=== PATIENT | male | born 1945 | race Caucasian/White ===

== ENCOUNTER 2018-02-11 06:56 | Day surgery (SDC) | payer MEDICARE, OTHER ==
[2018-02-06 12:28] LABS: BASOPHILS % (AUTO) 0.6 % (0-1); CLARITY,URINE CLEAR (Clear); COLOR,URINE YELLOW (Yellow); EOSINOPHILS # (AUTO) 0.2 X10'3 (0-0.9); EOSINOPHILS % (AUTO) 2.9 % (0-6); GLUCOSE, URINE NEGATIVE (Neg); HEMOGLOBIN 10.6 g/dl (14.0-17.9); KETONES,URINE NEGATIVE (Neg); LEUKOCYTE ESTERASE ,URINE NEGATIVE (Neg); LYMPHOCYTES # (AUTO) 1.2 X10'3 (1.1-4.8); LYMPHOCYTES % (AUTO) 17.6 % (21-51); MEAN CORPUSCULAR HEMOGLOBIN 27.9 PG (27.0-31.0); MEAN CORPUSCULAR HGB CONC 33.2 % (33.0-36.5); MEAN CORPUSCULAR VOLUME 83.8 FL (78-98); MEAN PLATELET VOLUME 7.6 FL (7.4-10.4); MONOCYTES # (AUTO) 0.9 X10'3 (0-0.9); NEUTROPHILS # (AUTO) 4.6 X10'3 (1.8-7.7); NEUTROPHILS % (AUTO) 65.9 % (42-75); NITRITES, URINE NEGATIVE (Neg); OCCULT BLOOD,URINE LARGE (Neg); PLATELET COUNT 353 X10'3 (140-440); PROTEIN,URINE 100 mg/dl (Neg); RED BLOOD COUNT 3.81 X10'6 (4.70-6.10); RED CELL DISTRIBUTION WIDTH 16.2 % (11.5-14.5); UROBILINOGEN,URINE 0.2 E.U/dL (0.2-1.0); WHITE BLOOD COUNT 6.9 X10'3 (4.5-11.0)
[2018-02-06 12:31] LABS: UA COLLECTION TYPE CLN CATCH MIDSTREAM
[2018-02-06 12:37] LABS: BACTERIA,URINE NONE SEEN /HPF (Neg); MUCUS STRANDS NONE SEEN /LPF (Neg); RBC,URINE 20-50 /HPF (0-2); SQUAMOUS EPITHELIAL CELL,UR NONE SEEN /LPF (FEW); WBC,URINE 0-4 /HPF (0-4); YEAST FEW /HPF (NEGATIVE)
[2018-02-06 12:38] LABS: PARTIAL THROMBOPLASTIN TIME 28 SECONDS (22-32); PROTHROMBIN TIME 10.4 SECONDS (9.0-12.0)
[2018-02-06 12:43] LABS: ALANINE AMINOTRANSFERASE 19 U/L (12-78); ALBUMIN 2.9 G/DL (3.4-5.0); ALBUMIN/GLOBULIN RATIO 0.5 (1.1-1.5); ALKALINE PHOSPHATASE 97 IU/L (46-116); ASPARTATE AMINO TRANSFERASE 13 U/L (10-37); BILIRUBIN,TOTAL 0.4 MG/DL (0.1-1.0); BLOOD UREA NITROGEN 45 MG/DL (7-18); CALCIUM 9.8 MG/DL (8.5-10.1); GLUCOSE 118 MG/DL (70-104); TOTAL PROTEIN 9.1 G/DL (6.4-8.2)
[2018-02-06 13:39] LABS: ANION GAP 9 (8-16); BUN/CREATININE RATIO 20.4 (5.4-32.0); CHLORIDE 102 MMOL/L (99-107); CREATININE 2.21 MG/DL (0.60-1.10); POTASSIUM 4.3 MMOL/L (3.5-5.1); SODIUM 138 MMOL/L (135-145); eGFR 29 ML/MIN
[2018-02-06 16:39] LABS: PLATELET FUNCTION (ADP) 148 SECONDS (63-104)
[~2018-02-11] VITALS: Ht 180.3 cm; Wt 123.4 kg
[2018-02-11] VITALS (23 sets, daily range): BP systolic 113–134; BP diastolic 55–77
[~2018-02-11 06:56] MED LIST: ALLO100T PO; ASPI-10 PO; CLOP75TA35 PO; CYAN-19 PO; FOLI1TAB16 PO; FURO40TA4 PO; METO-395 PO; NAPR220T67 PO; POTA8TAB3 PO; PRAV40TA3 PO; VITA100D6 PO
[2018-02-11] MEDS ORDERED: LIDOcaine 1% 30ml preserv. free vial SQ STA (08:29)
[2018-02-11] MEDS ORDERED: MIDAZolam 5mg/ml 2ml vial IV ONE ×2 (08:30→08:40)
[2018-02-11] MEDS ORDERED: LIDOcaine 1% 30ml preserv. free vial SQ ONE (08:40)
[2018-02-11] MEDS ORDERED: LIDOcaine 1% (10mg/ml) 2ml vial SQ ONE (09:05)
[2018-02-11] MEDS ORDERED: LIDOcaine 1%/PF (10mg/ml) 5ml vial IJ ONE (09:10)
[2018-02-11] MEDS ORDERED: NORMAL SALINE IV ONE (09:30)
[2018-02-11] MEDS ORDERED: DESMOPRESSIN IV ONE (09:30)
[2018-02-11 15:52] LABS: HEMATOCRIT 30.6 % (42.0-52.0); HEMOGLOBIN 10.1 g/dl (14.0-17.9); MEAN CORPUSCULAR HEMOGLOBIN 27.5 PG (27.0-31.0); MEAN CORPUSCULAR VOLUME 83.5 FL (78-98); MEAN PLATELET VOLUME 7.3 FL (7.4-10.4); PLATELET COUNT 296 X10'3 (140-440); RED BLOOD COUNT 3.67 X10'6 (4.70-6.10); RED CELL DISTRIBUTION WIDTH 15.9 % (11.5-14.5); WHITE BLOOD COUNT 9.9 X10'3 (4.5-11.0)
[2018-02-11] MEDS ORDERED: acetaminophen w/codeine (30MG) #3 tablet PO PRN (16:45)
[2018-02-11 17:16] LABS: HEMATOCRIT 29.8 % (42.0-52.0); HEMOGLOBIN 9.9 g/dl (14.0-17.9); MEAN CORPUSCULAR HEMOGLOBIN 27.5 PG (27.0-31.0); MEAN CORPUSCULAR HGB CONC 33.2 % (33.0-36.5); MEAN CORPUSCULAR VOLUME 82.7 FL (78-98); PLATELET COUNT 289 X10'3 (140-440); WHITE BLOOD COUNT 9.6 X10'3 (4.5-11.0)
== END 2018-02-11 18:00 | disposition home or self-care (01) ==
LOC: SSTAY O 06:56
PROVIDERS: ATTEND Internal Medicine Critical Care Medicine
DX: N04.9 Nephrotic syndrome with unspecified morphologic changes (principal); I13.0 Hypertensive heart and chronic kidney disease with heart failure and stage 1 through stage 4 chronic kidney disease, or unspecified chronic kidney disease; N18.3 Chronic kidney disease, stage 3 (moderate); I50.21 Acute systolic (congestive) heart failure; I25.10 Atherosclerotic heart disease of native coronary artery without angina pectoris; E78.5 Hyperlipidemia, unspecified; N40.0 Benign prostatic hyperplasia without lower urinary tract symptoms; M19.90 Unspecified osteoarthritis, unspecified site; E66.9 Obesity, unspecified; Z53.8 Procedure and treatment not carried out for other reasons; Z95.1 Presence of aortocoronary bypass graft; Z95.5 Presence of coronary angioplasty implant and graft; Z87.891 Personal history of nicotine dependence; Z68.37 Body mass index [BMI] 37.0-37.9, adult; Z98.41 Cataract extraction status, right eye; Z90.89 Acquired absence of other organs; Z98.42 Cataract extraction status, left eye; Z79.82 Long term (current) use of aspirin; Z98.890 Other specified postprocedural states; Z79.899 Other long term (current) drug therapy
CPT/HCPCS: 36415; 76942; 80053; 81001; 85025; 85027; 85576; 85610; 85730; 86885; 86900; 86901; 86920; 87088; A6449; J2001; J2250; J2597; J7030; 88300; A4620; J3490

== ENCOUNTER 2018-03-25 05:56 | Day surgery (SDC) | payer MEDICARE, OTHER ==
[2018-03-20 15:19] LABS: BASOPHILS % (AUTO) 0.5 % (0-1); EOSINOPHILS # (AUTO) 0.2 X10'3 (0-0.9); EOSINOPHILS % (AUTO) 2.3 % (0-6); HEMATOCRIT 31.7 % (42.0-52.0); HEMOGLOBIN 10.5 g/dl (14.0-17.9); LYMPHOCYTES # (AUTO) 1.4 X10'3 (1.1-4.8); LYMPHOCYTES % (AUTO) 18.1 % (21-51); MEAN CORPUSCULAR HEMOGLOBIN 27.1 PG (27.0-31.0); MEAN CORPUSCULAR HGB CONC 33.1 % (33.0-36.5); MEAN CORPUSCULAR VOLUME 81.9 FL (78-98); MEAN PLATELET VOLUME 7.1 FL (7.4-10.4); MONOCYTES # (AUTO) 0.9 X10'3 (0-0.9); MONOCYTES % (AUTO) 11.7 % (2-12); NEUTROPHILS # (AUTO) 5.4 X10'3 (1.8-7.7); NEUTROPHILS % (AUTO) 67.4 % (42-75); PLATELET COUNT 344 X10'3 (140-440); RED BLOOD COUNT 3.87 X10'6 (4.70-6.10); RED CELL DISTRIBUTION WIDTH 16.3 % (11.5-14.5)
[2018-03-20 15:21] LABS: CLARITY,URINE CLEAR (Clear); COLOR,URINE YELLOW (Yellow); GLUCOSE, URINE NEGATIVE (Neg); KETONES,URINE NEGATIVE (Neg); LEUKOCYTE ESTERASE ,URINE NEGATIVE (Neg); NITRITES, URINE NEGATIVE (Neg); OCCULT BLOOD,URINE LARGE (Neg); PH,URINE 5.5 (4.8-8.0); PROTEIN,URINE 100 mg/dl (Neg); UROBILINOGEN,URINE 0.2 E.U/dL (0.2-1.0)
[2018-03-20 15:30] LABS: PARTIAL THROMBOPLASTIN TIME 28 SECONDS (22-32); PROTHROMBIN TIME 10.4 SECONDS (9.0-12.0)
[2018-03-20 15:36] LABS: BACTERIA,URINE NONE SEEN /HPF (Neg); MUCUS STRANDS NONE SEEN /LPF (Neg); RBC,URINE 20-50 /HPF (0-2); SQUAMOUS EPITHELIAL CELL,UR NONE SEEN /LPF (FEW); WBC,URINE 0-4 /HPF (0-4)
[2018-03-20 15:37] LABS: CELLULAR CAST 0-4 /LPF (NEGATIVE); COARSE GRANULAR CAST 0-3 /LPF (NEGATIVE); HYALINE CASTS 0-3 /LPF (NEGATIVE)
[2018-03-20 15:39] LABS: ALANINE AMINOTRANSFERASE 22 U/L (12-78); ALKALINE PHOSPHATASE 106 IU/L (46-116); ANION GAP 12 (8-16); CALCIUM 9.6 MG/DL (8.5-10.1); CHLORIDE 101 MMOL/L (99-107); CREATININE 2.42 MG/DL (0.60-1.10); POTASSIUM 3.8 MMOL/L (3.5-5.1); SODIUM 139 MMOL/L (135-145); TOTAL CARBON DIOXIDE 25.7 MMOL/L (24-32); eGFR 26 ML/MIN
[2018-03-20 15:59] LABS: ALBUMIN 2.9 G/DL (3.4-5.0); ALBUMIN/GLOBULIN RATIO 0.4 (1.1-1.5); BILIRUBIN,TOTAL 0.4 MG/DL (0.1-1.0); BLOOD UREA NITROGEN 37 MG/DL (7-18); BUN/CREATININE RATIO 15.3 (5.4-32.0); GLUCOSE 92 MG/DL (70-104); TOTAL PROTEIN 9.6 G/DL (6.4-8.2)
[2018-03-20 16:00] LABS: ASPARTATE AMINO TRANSFERASE 12 U/L (10-37)
[2018-03-20 16:33] LABS: UA COLLECTION TYPE CLN CATCH MIDSTREAM
[2018-03-20 16:52] LABS: PLATELET FUNCTION (ADP) 180 SECONDS (63-104)
[~2018-03-25] VITALS: Ht 180.3 cm; Wt 124.2 kg
[2018-03-25] VITALS (22 sets, daily range): BP systolic 119–142; BP diastolic 53–107
[2018-03-25] MEDS ORDERED: DESMOPRESSIN IV ONE (06:30)
[2018-03-25] MEDS ORDERED: NORMAL SALINE IV ONE (06:30)
[2018-03-25] MEDS ORDERED: MIDAZolam 5mg/5ml vial IV PRN (06:35)
[2018-03-25] MEDS ORDERED: normal saline 1000ml 1,000 ML IV ONE (06:35)
[2018-03-25] MEDS ORDERED: LIDOcaine 1% (10mg/ml)/PF 5ml amp IJ ONE (08:00)
[2018-03-25 08:29] LABS: HEMATOCRIT 30.5 % (42.0-52.0); HEMOGLOBIN 10.3 g/dl (14.0-17.9); MEAN CORPUSCULAR HEMOGLOBIN 27.4 PG (27.0-31.0); MEAN CORPUSCULAR HGB CONC 33.7 % (33.0-36.5); MEAN CORPUSCULAR VOLUME 81.3 FL (78-98); MEAN PLATELET VOLUME 6.6 FL (7.4-10.4); PLATELET COUNT 292 X10'3 (140-440); RED BLOOD COUNT 3.75 X10'6 (4.70-6.10); RED CELL DISTRIBUTION WIDTH 16.3 % (11.5-14.5); WHITE BLOOD COUNT 6.6 X10'3 (4.5-11.0)
[2018-03-25 12:40] LABS: HEMATOCRIT 28.7 % (42.0-52.0); HEMOGLOBIN 9.6 g/dl (14.0-17.9); MEAN CORPUSCULAR HEMOGLOBIN 27.4 PG (27.0-31.0); MEAN CORPUSCULAR HGB CONC 33.6 % (33.0-36.5); MEAN CORPUSCULAR VOLUME 81.4 FL (78-98); MEAN PLATELET VOLUME 6.4 FL (7.4-10.4); PLATELET COUNT 282 X10'3 (140-440); RED BLOOD COUNT 3.53 X10'6 (4.70-6.10); RED CELL DISTRIBUTION WIDTH 16.2 % (11.5-14.5); WHITE BLOOD COUNT 7.9 X10'3 (4.5-11.0)
[2018-03-25 14:32] LABS: HEMATOCRIT 29.6 % (42.0-52.0); HEMOGLOBIN 9.8 g/dl (14.0-17.9); MEAN CORPUSCULAR HEMOGLOBIN 27.4 PG (27.0-31.0); MEAN CORPUSCULAR HGB CONC 33.2 % (33.0-36.5); MEAN CORPUSCULAR VOLUME 82.5 FL (78-98); MEAN PLATELET VOLUME 7.1 FL (7.4-10.4); PLATELET COUNT 273 X10'3 (140-440); RED BLOOD COUNT 3.59 X10'6 (4.70-6.10); RED CELL DISTRIBUTION WIDTH 16.6 % (11.5-14.5); WHITE BLOOD COUNT 7.4 X10'3 (4.5-11.0)
== END 2018-03-25 15:05 | disposition home or self-care (01) ==
LOC: SSTAY O 05:56
PROVIDERS: ATTEND Internal Medicine Critical Care Medicine
DX: N28.1 Cyst of kidney, acquired (principal); I13.0 Hypertensive heart and chronic kidney disease with heart failure and stage 1 through stage 4 chronic kidney disease, or unspecified chronic kidney disease; N18.3 Chronic kidney disease, stage 3 (moderate); I50.21 Acute systolic (congestive) heart failure; G47.39 Other sleep apnea; I25.10 Atherosclerotic heart disease of native coronary artery without angina pectoris; E66.8 Other obesity; D63.1 Anemia in chronic kidney disease; N40.0 Benign prostatic hyperplasia without lower urinary tract symptoms; E78.5 Hyperlipidemia, unspecified; M19.90 Unspecified osteoarthritis, unspecified site; Z95.1 Presence of aortocoronary bypass graft; Z95.5 Presence of coronary angioplasty implant and graft; Z87.891 Personal history of nicotine dependence; Z68.38 Body mass index [BMI] 38.0-38.9, adult; Z98.41 Cataract extraction status, right eye; Z98.42 Cataract extraction status, left eye; Z90.89 Acquired absence of other organs; Z79.82 Long term (current) use of aspirin; Z79.891 Long term (current) use of opiate analgesic; Z79.899 Other long term (current) drug therapy; Z98.890 Other specified postprocedural states
CPT/HCPCS: 36415; 50200; 76942; 80053; 81001; 85025; 85027; 85576; 85610; 85730; 86885; 86900; 86901; 86920; J2250; J2597; J3490; J7030

== ENCOUNTER 2018-04-10 06:30 | Day surgery (SDC) | payer MEDICARE, OTHER ==
[2018-04-10] VITALS (23 sets, daily range): BP systolic 112–157; BP diastolic 54–96
[~2018-04-10] VITALS: Ht 180.3 cm; Wt 125.0 kg
[~2018-04-10 06:30] MED LIST changes: -CLOP75TA35 PO
[2018-04-10] MEDS ORDERED: normal saline 1000ml 1,000 ML IV PRN (07:00)
[2018-04-10 07:11] LABS: BASOPHILS # (AUTO) 0.1 X10'3 (0-0.2); BASOPHILS % (AUTO) 0.8 % (0-1); EOSINOPHILS # (AUTO) 0.3 X10'3 (0-0.9); EOSINOPHILS % (AUTO) 4.7 % (0-6); HEMATOCRIT 32.9 % (42.0-52.0); LYMPHOCYTES # (AUTO) 1.4 X10'3 (1.1-4.8); LYMPHOCYTES % (AUTO) 18.6 % (21-51); MEAN CORPUSCULAR HEMOGLOBIN 27.1 PG (27.0-31.0); MEAN CORPUSCULAR HGB CONC 33.4 % (33.0-36.5); MEAN CORPUSCULAR VOLUME 81.2 FL (78-98); MEAN PLATELET VOLUME 7.2 FL (7.4-10.4); MONOCYTES # (AUTO) 0.9 X10'3 (0-0.9); MONOCYTES % (AUTO) 12.4 % (2-12); NEUTROPHILS # (AUTO) 4.7 X10'3 (1.8-7.7); NEUTROPHILS % (AUTO) 63.5 % (42-75); PLATELET COUNT 315 X10'3 (140-440); RED BLOOD COUNT 4.06 X10'6 (4.70-6.10); RED CELL DISTRIBUTION WIDTH 16.5 % (11.5-14.5); WHITE BLOOD COUNT 7.4 X10'3 (4.5-11.0)
[2018-04-10] MEDS ORDERED: normal saline 1000ml 1,000 ML IV SCH (08:00)
[2018-04-10] MEDS ORDERED: midazolam 2 mg/2 ml injection IV PRN (08:25)
[2018-04-10] MEDS ORDERED: LIDOcaine 1%/PF 5ML 10 MG/ML VIAL SQ ONE (08:25)
[2018-04-10] MEDS ORDERED: fentaNYL/PF 50MCG/1 ML 2ML syringe IV PRN (08:25)
[2018-04-10] MEDS ORDERED: LIDOcaine 1%/PF 5ML 10 MG/ML VIAL ONE (08:50)
[2018-04-10] MEDS ORDERED: fentaNYL/PF 50MCG/1 ML 2ML syringe ONE (08:54)
[2018-04-10] MEDS ORDERED: midazolam 2 mg/2 ml injection ONE (08:54)
== END 2018-04-10 14:00 | disposition home or self-care (01) ==
LOC: SSTAY O 06:30
PROVIDERS: ATTEND Radiology Diagnostic Radiology
DX: N05.8 Unspecified nephritic syndrome with other morphologic changes (principal); N28.1 Cyst of kidney, acquired; N20.0 Calculus of kidney; I13.0 Hypertensive heart and chronic kidney disease with heart failure and stage 1 through stage 4 chronic kidney disease, or unspecified chronic kidney disease; N18.3 Chronic kidney disease, stage 3 (moderate); I50.21 Acute systolic (congestive) heart failure; I25.10 Atherosclerotic heart disease of native coronary artery without angina pectoris; D47.2 Monoclonal gammopathy; E66.9 Obesity, unspecified; E78.5 Hyperlipidemia, unspecified; N40.0 Benign prostatic hyperplasia without lower urinary tract symptoms; M19.90 Unspecified osteoarthritis, unspecified site; G47.33 Obstructive sleep apnea (adult) (pediatric); Z68.38 Body mass index [BMI] 38.0-38.9, adult; Z90.79 Acquired absence of other genital organ(s); Z90.89 Acquired absence of other organs; Z98.41 Cataract extraction status, right eye; Z79.82 Long term (current) use of aspirin; Z95.5 Presence of coronary angioplasty implant and graft; Z95.1 Presence of aortocoronary bypass graft; Z87.891 Personal history of nicotine dependence; Z98.42 Cataract extraction status, left eye; Z79.891 Long term (current) use of opiate analgesic; Z98.890 Other specified postprocedural states; Z79.899 Other long term (current) drug therapy
CPT/HCPCS: 36415; 50200; 77012; 85025; 99152; 99153; J2001; J2250; J3010; J7030

== ENCOUNTER 2019-11-10 13:51 | Outpatient (CLI) | payer MEDICARE, OTHER ==
[~2019-11-10 13:51] MED LIST changes: -CYAN-19 PO; +CYAN-51 PO
== END 2019-11-10 23:59 | disposition home or self-care (01) ==
LOC: CARD DIAG 13:51
PROVIDERS: ATTEND Internal Medicine Cardiovascular Disease
DX: I08.3 Combined rheumatic disorders of mitral, aortic and tricuspid valves (principal); R06.02 Shortness of breath; I50.30 Unspecified diastolic (congestive) heart failure
CPT/HCPCS: 93306

== ENCOUNTER 2019-12-22 05:25 | Day surgery (SDC) | payer MEDICARE, OTHER ==
[2019-12-17 14:20] LABS: BASOPHILS # (AUTO) 0.1 X10'3 (0-0.2); CLARITY,URINE CLEAR (Clear); COLOR,URINE STRAW (Yellow); EOSINOPHILS # (AUTO) 0.2 X10'3 (0-0.9); EOSINOPHILS % (AUTO) 1.9 % (0-6); GLUCOSE, URINE 100 mg/dl (Neg); KETONES,URINE NEGATIVE (Neg); LEUKOCYTE ESTERASE ,URINE NEGATIVE (Neg); LYMPHOCYTES # (AUTO) 1.3 X10'3 (1.1-4.8); LYMPHOCYTES % (AUTO) 14.5 % (21-51); MEAN CORPUSCULAR HEMOGLOBIN 25.6 PG (27.0-31.0); MEAN CORPUSCULAR HGB CONC 31.2 g/dL (33.0-36.5); MEAN CORPUSCULAR VOLUME 81.9 FL (78-98); MEAN PLATELET VOLUME 7.7 FL (7.4-10.4); MONOCYTES # (AUTO) 1.5 X10'3 (0-0.9); MONOCYTES % (AUTO) 17.1 % (2-12); NEUTROPHILS # (AUTO) 5.8 X10'3 (1.8-7.7); NEUTROPHILS % (AUTO) 65.5 % (42-75); NITRITES, URINE NEGATIVE (Neg); OCCULT BLOOD,URINE SMALL (Neg); PRE OP PLATELET COUNT 280 X10'3 (140-440); PROTEIN,URINE >=300 mg/dl (Neg); RED BLOOD COUNT 3.17 X10'6 (4.70-6.10); RED CELL DISTRIBUTION WIDTH 18.7 % (11.5-14.5); UROBILINOGEN,URINE 0.2 E.U/dL (0.2-1.0)
[2019-12-17 14:23] LABS: PRE OP HEMOGLOBIN 8.1 g/dL (14.0-17.9)
[2019-12-17 14:25] LABS: UA COLLECTION TYPE CLN CATCH MIDSTREAM
[2019-12-17 14:27] LABS: BACTERIA,URINE NONE SEEN /HPF (Neg); RBC,URINE 0-2 /HPF (0-2); WBC,URINE 0-4 /HPF (0-4)
[2019-12-17 14:28] LABS: RENAL CELLS, URINE FEW /HPF; SQUAMOUS EPITHELIAL CELL,UR NONE SEEN /LPF (FEW)
[2019-12-17 14:32] LABS: PRE OP INR 1.1 INR; PRE OP PROTIME 11.1 SECONDS (9.0-12.0)
[2019-12-17 14:34] LABS: ALBUMIN 2.8 G/DL (3.4-5.0); ALBUMIN/GLOBULIN RATIO 0.7 (1.1-1.5); ALKALINE PHOSPHATASE 95 IU/L (46-116); BLOOD UREA NITROGEN 41 MG/DL (7-18); BUN/CREATININE RATIO 6.8 (5.4-32.0); CALCIUM 8.9 MG/DL (8.5-10.1); CHLORIDE 101 MMOL/L (99-107); CREATININE 6.03 MG/DL (0.60-1.10); PRE OP ALT 12 U/L (30-65); PRE OP ANION GAP 8 (8-16); PRE OP AST 11 U/L (10-37); PRE OP BILIRUB, TOTAL 0.4 MG/DL (0.0-1.0); PRE OP POTASSIUM 4.6 MMOL/L (3.4-5.1); PRE OP SODIUM 140 MMOL/L (135-145); TOTAL CARBON DIOXIDE 30.7 MMOL/L (24-32); eGFR 9 ML/MIN
[2019-12-17 14:36] LABS: PRE OP GLUCOSE 103 MG/DL (70-104)
[2019-12-17 15:03] LABS: ANISOCYTOSIS 2+; HYPOCHROMASIA 1+; PLATELET ESTIMATE NORMAL; POLYCHROMASIA 1+
[2019-12-22] VITALS (7 sets, daily range): BP systolic 134–161; BP diastolic 59–78
[~2019-12-22] VITALS: Ht 180.3 cm; Wt 132.0 kg
[~2019-12-22 05:25] MED LIST changes: +ACYC200C PO; -ALLO100T PO; -ASPI-10 PO; +ASPI81TA52 PO; -CYAN-51 PO; +DEXA4TAB PO; -FOLI1TAB16 PO; -FURO40TA4 PO; +FURO80TA3 PO; +GABA-530 PO; -METO-395 PO; +METO25TA6 PO; -NAPR220T67 PO; -POTA8TAB3 PO; -VITA100D6 PO; +ZOLP5TAB8 PO; +cefazolin/dext.iso 2gm/100ml 100 ML IV ONE; +ringers solution, lacted 1,000 ML IV SCH; +tamsulosin capsule PO
[2019-12-22] MEDS ORDERED: famotidine 20mg tablet PO ONE (05:30)
[2019-12-22] MEDS ORDERED: cefazolin/dext.iso 2gm/100ml 100 ML IV ONE (05:30)
[2019-12-22] MEDS ORDERED: DOCUMENT DATE & TIME OF BETA-BLOCKER PO ONE (05:30)
[2019-12-22] MEDS ORDERED: LIDOcaine 1% (10mg/ml) 2ml vial ONE (06:02)
[2019-12-22] MEDS ORDERED: BUPIVAcaine/PF 2.5mg/ml (0.25%) 10ml vial ONE (06:47)
[2019-12-22] MEDS ORDERED: heparin 10,000 units/1 ML INJ ONE (06:47)
[2019-12-22] MEDS ORDERED: LIDOcaine 1% W/epiNEPHrine 1:100,000 20ml vial ONE (06:47)
[2019-12-22] MEDS ORDERED: ringers solution, lacted 1,000 ML IV SCH (07:18)
[2019-12-22] MEDS ORDERED: enalaprilat dihydrate 2.5mg/2ml vial IV PRN (07:20)
[2019-12-22] MEDS ORDERED: ondansetron/PF 4mg/2ml inj IV PRN (07:20)
[2019-12-22] MEDS ORDERED: morphine 4 MG/ML inj SYRINge IV PRN (07:20)
[2019-12-22] MEDS ORDERED: labetalol 20mg/4ml (5mg/ml) syringe IV PRN (07:20)
[2019-12-22] MEDS ORDERED: morphine 2 MG/ML inj. syringe IV PRN (07:20)
[2019-12-22] MEDS ORDERED: fentaNYL/PF 50MCG/1 ML 2ML syringe IV PRN ×2 (07:20)
[2019-12-22] MEDS ORDERED: MIDAZolam 5mg/5ml vial ONE (07:21)
[2019-12-22] MEDS ORDERED: fentaNYL/PF 50MCG/1 ML 2ML syringe ONE (07:21)
[2019-12-22] MEDS ORDERED: ROPIVAcaine 0.5% (5mg/ml) 30ml vial ONE (07:22)
--- NOTE | 2019-12-22 09:08 | NUR ---
Received from OR via [facility], accompanied by Anesthesiologist LUDWIN and report given by Anesthesiolgist. All VS WNL mask to 10L and sats 100%. 20G IVF left forearm LR at 50cc, surgical site to right forearm, bruit auscultated, radial pulses palpable. Responsive to questions, bilateral hearing aids present.
--- NOTE | 2019-12-22 10:18 | NUR ---
Pt discharged to vehicle by wheelchair without incident after IV DC'd. Pt alert and responsive, he and S/O verbalized understanding of discharge instructions. They know pain meds have been sent to pharmacy from doctors office. All belongings returned to patient. Surgical site remains CDI and good bruit present.
== END 2019-12-22 10:18 | disposition home or self-care (01) ==
LOC: PAS 05:25
PROVIDERS: ATTEND Surgery
DX: I12.0 Hypertensive chronic kidney disease with stage 5 chronic kidney disease or end stage renal disease (principal); N18.5 Chronic kidney disease, stage 5; G47.30 Sleep apnea, unspecified; G47.00 Insomnia, unspecified; Z87.442 Personal history of urinary calculi; Z79.82 Long term (current) use of aspirin; Z79.899 Other long term (current) drug therapy; G89.18 Other acute postprocedural pain; Z95.1 Presence of aortocoronary bypass graft; Z87.891 Personal history of nicotine dependence; Z98.890 Other specified postprocedural states
CPT/HCPCS: 36415; 36821; 64417; 76942; 80053; 81001; 82948; 85025; 85610; 85730; J1644; J2001; J2250; J3010; J3490; J7040; J7120; A4215; A4618; A7000; J2795

== ENCOUNTER 2020-03-13 06:32 | Day surgery (SDC) | payer MEDICARE, OTHER ==
[~2020-03-13] VITALS: Ht 180.3 cm; Wt 134.1 kg
[2020-03-13] VITALS (22 sets, daily range): BP systolic 99–153; BP diastolic 47–85
[~2020-03-13 06:32] MED LIST changes: -cefazolin/dext.iso 2gm/100ml 100 ML IV ONE; -ringers solution, lacted 1,000 ML IV SCH
[2020-03-13] MEDS ORDERED: normal saline 1000ml 1,000 ML IV PRN (06:50)
[2020-03-13] MEDS ORDERED: GABA100C PO (07:12)
[2020-03-13] MEDS ORDERED: ASPI-1265 PO (07:12)
[2020-03-13 07:50] LABS: ALBUMIN 3.4 G/DL (3.4-5.0); ANION GAP 11 (8-16); BLOOD UREA NITROGEN 65 MG/DL (7-18); BUN/CREATININE RATIO 9.1 (5.4-32.0); CALCIUM 8.9 MG/DL (8.5-10.1); CHLORIDE 102 MMOL/L (99-107); CREATININE 7.11 MG/DL (0.60-1.10); POTASSIUM 4.3 MMOL/L (3.5-5.1); SODIUM 142 MMOL/L (135-145); TOTAL CARBON DIOXIDE 29.3 MMOL/L (24-32); eGFR 8 ML/MIN
[2020-03-13 07:52] LABS: BASOPHILS # (AUTO) 0.1 X10'3 (0-0.2); BASOPHILS % (AUTO) 0.8 % (0-1); EOSINOPHILS # (AUTO) 0.2 X10'3 (0-0.9); EOSINOPHILS % (AUTO) 3.2 % (0-6); GLUCOSE 140 MG/DL (70-104); HEMOGLOBIN 12.8 g/dl (14.0-17.9); LYMPHOCYTES # (AUTO) 1.5 X10'3 (1.1-4.8); LYMPHOCYTES % (AUTO) 19.9 % (21-51); MEAN CORPUSCULAR HEMOGLOBIN 30.5 PG (27.0-31.0); MEAN CORPUSCULAR HGB CONC 32.7 g/dL (33.0-36.5); MEAN CORPUSCULAR VOLUME 93.1 FL (78-98); MONOCYTES # (AUTO) 1.3 X10'3 (0-0.9); MONOCYTES % (AUTO) 17.1 % (2-12); NEUTROPHILS # (AUTO) 4.3 X10'3 (1.8-7.7); PLATELET COUNT 189 X10'3 (140-440); RED BLOOD COUNT 4.19 X10'6 (4.70-6.10); RED CELL DISTRIBUTION WIDTH 18.3 % (11.5-14.5); WHITE BLOOD COUNT 7.3 X10'3 (4.5-11.0)
[2020-03-13] MEDS ORDERED: fentaNYL/PF 50MCG/1 ML 2ML syringe ONE ×2 (08:59→09:34)
[2020-03-13] MEDS ORDERED: iohexol 300mg/ml 100ml inj. ONE (08:59)
[2020-03-13] MEDS ORDERED: heparin 1,000 UNITS/NS 500ml 500 ML ONE ×2 (08:59→11:10)
[2020-03-13] MEDS ORDERED: midazolam 2 mg/2 ml injection ONE ×2 (08:59→09:33)
[2020-03-13] MEDS ORDERED: LIDOcaine 1%/PF 5ML 10 MG/ML VIAL ONE (09:33)
[2020-03-13 10:26] LABS: ANISOCYTOSIS 2+; PLATELET ESTIMATE NORMAL; TOTAL CELLS COUNTED 100
== END 2020-03-13 13:00 | disposition home or self-care (01) ==
LOC: SSTAY O 06:32
PROVIDERS: ATTEND Radiology Diagnostic Radiology
DX: T82.858A Stenosis of other vascular prosthetic devices, implants and grafts, initial encounter (principal); I11.0 Hypertensive heart disease with heart failure; I50.9 Heart failure, unspecified; I25.10 Atherosclerotic heart disease of native coronary artery without angina pectoris; Z87.442 Personal history of urinary calculi; Z79.82 Long term (current) use of aspirin; Z79.899 Other long term (current) drug therapy; Z11.59 Encounter for screening for other viral diseases; Y83.2 Surgical operation with anastomosis, bypass or graft as the cause of abnormal reaction of the patient, or of later complication, without mention of misadventure at the time of the procedure; Y92.89 Other specified places as the place of occurrence of the external cause
CPT/HCPCS: 36415; 36902; 80048; 85025; 99152; 99153; C1725; C1769; C1894; J1644; J2250; J3010; Q9967; U0003; 36907

== ENCOUNTER 2020-06-07 06:34 | Day surgery (SDC) | payer MEDICARE, OTHER ==
[2020-06-05 16:23] LABS: CLARITY,URINE CLEAR (Clear); COLOR,URINE YELLOW (Yellow); GLUCOSE, URINE NEGATIVE (Neg); KETONES,URINE NEGATIVE (Neg); LEUKOCYTE ESTERASE ,URINE NEGATIVE (Neg); NITRITES, URINE NEGATIVE (Neg); OCCULT BLOOD,URINE SMALL (Neg); PH,URINE 7.5 (4.8-8.0); PROTEIN,URINE 100 mg/dl (Neg); UROBILINOGEN,URINE 0.2 E.U/dL (0.2-1.0)
[2020-06-05 16:25] LABS: UA COLLECTION TYPE CLN CATCH MIDSTREAM
[2020-06-05 16:32] LABS: SQUAMOUS EPITHELIAL CELL,UR FEW /LPF (FEW)
[2020-06-05 16:33] LABS: BACTERIA,URINE FEW /HPF (Neg); RBC,URINE 0-2 /HPF (0-2); WBC,URINE 0-4 /HPF (0-4)
[2020-06-05 16:34] LABS: HYALINE CASTS 0-3 /LPF (NEGATIVE)
[2020-06-05 16:35] LABS: BASOPHILS # (AUTO) 0.1 X10'3 (0-0.2); BASOPHILS % (AUTO) 0.7 % (0-1); EOSINOPHILS # (AUTO) 0.4 X10'3 (0-0.9); EOSINOPHILS % (AUTO) 3.6 % (0-6); LYMPHOCYTES # (AUTO) 1.7 X10'3 (1.1-4.8); LYMPHOCYTES % (AUTO) 16.7 % (21-51); MEAN CORPUSCULAR HGB CONC 33.2 g/dL (33.0-36.5); MEAN CORPUSCULAR VOLUME 96.2 FL (78-98); MEAN PLATELET VOLUME 8.1 FL (7.4-10.4); MONOCYTES # (AUTO) 1.6 X10'3 (0-0.9); MONOCYTES % (AUTO) 16.1 % (2-12); NEUTROPHILS # (AUTO) 6.2 X10'3 (1.8-7.7); NEUTROPHILS % (AUTO) 62.9 % (42-75); PRE OP HEMATOCRIT 36.2 % (42.0-52.0); PRE OP PLATELET COUNT 189 X10'3 (140-440); RED BLOOD COUNT 3.77 X10'6 (4.70-6.10); RED CELL DISTRIBUTION WIDTH 15.5 % (11.5-14.5)
[2020-06-05 16:36] LABS: PRE OP PROTIME 10.1 SECONDS (9.0-12.0)
[2020-06-05 16:37] LABS: ALBUMIN 3.4 G/DL (3.4-5.0); ALBUMIN/GLOBULIN RATIO 0.9 (1.1-1.5); ALKALINE PHOSPHATASE 61 IU/L (46-116); BLOOD UREA NITROGEN 69 MG/DL (7-18); BUN/CREATININE RATIO 7.7 (5.4-32.0); CALCIUM 9.3 MG/DL (8.5-10.1); CHLORIDE 103 MMOL/L (99-107); CREATININE 8.98 MG/DL (0.60-1.10); PRE OP ALT 15 U/L (30-65); PRE OP ANION GAP 11 (8-16); PRE OP AST 7 U/L (10-37); PRE OP BILIRUB, TOTAL 0.5 MG/DL (0.0-1.0); PRE OP POTASSIUM 5.2 MMOL/L (3.4-5.1); PRE OP SODIUM 141 MMOL/L (135-145); TOTAL CARBON DIOXIDE 26.6 MMOL/L (24-32); TOTAL PROTEIN 7.1 G/DL (6.4-8.2); eGFR 6 ML/MIN
[2020-06-05 16:46] LABS: PRE OP GLUCOSE 99 MG/DL (70-104)
[~2020-06-07] VITALS: Ht 182.9 cm; Wt 134.3 kg
[2020-06-07] VITALS (9 sets, daily range): BP systolic 109–146; BP diastolic 55–74
[~2020-06-07 06:34] MED LIST changes: +ASPI-1265 PO; -ASPI81TA52 PO; +DOCUMENT DATE & TIME OF BETA-BLOCKER PO ONE; -GABA-530 PO; +GABA100C PO; +ceFAZolin inj. 3,000 MG in normal saline 100ml IV soln 100 ML IV ONE; +famotidine 20mg tablet PO ONE; +ringers solution, lacted 1,000 ML IV SCH; -tamsulosin capsule PO
[2020-06-07] MEDS ORDERED: LIDOcaine 1% w/epiNEPHrine 1:200,000 30ml vial ONE (09:49)
[2020-06-07] MEDS ORDERED: BUPIVAcaine/PF 2.5 mg/ml (0.25%) 30ml vial ONE (09:49)
[2020-06-07] MEDS ORDERED: heparin 10,000 units/1 ML INJ ONE (09:49)
[2020-06-07] MEDS ORDERED: sevoflurane 250ml liquid IH ONE (10:25)
[2020-06-07] MEDS ORDERED: fentaNYL/PF 50MCG/1 ML 2ML syringe ONE (10:48)
[2020-06-07] MEDS ORDERED: propofol inj 20 ML IV ONE (10:50)
[2020-06-07] MEDS ORDERED: LIDOcaine 2% (20mg/ml) 5ml vial ONE (10:50)
[2020-06-07] MEDS ORDERED: dexamethasone sod phosphate 4mg/ml inj. ONE (10:50)
[2020-06-07] MEDS ORDERED: ROPIVAcaine 0.5% (5mg/ml) 30ml vial ONE (10:50)
[2020-06-07] MEDS ORDERED: ondansetron/PF 4mg/2ml inj ONE (10:50)
[2020-06-07] MEDS ORDERED: proCHLORperazine 10 MG/2 ml inj IV PRN (11:00)
[2020-06-07] MEDS ORDERED: normal saline 1000ml 1,000 ML IV ONE (11:00)
[2020-06-07] MEDS ORDERED: acetaminophen 1,000mg/100ml IV 100 ML IV PRN (11:00)
[2020-06-07] MEDS ORDERED: morphine 2 MG/ML inj. syringe IV PRN (11:00)
[2020-06-07] MEDS ORDERED: HYDROmorphone inj. 0.5 MG/0.5 ML DISP.SYRIN IV PRN (11:00)
[2020-06-07] MEDS ORDERED: ondansetron/PF 4mg/2ml inj IV PRN (11:00)
--- NOTE | 2020-06-07 11:22 | NUR ---
RECEIVED FROM OR VIA [facility] ACCOMPANIED BY ANESTHESIOLOGIST DR OSPINA, REPORT GIVEN. PT AWAKE AND ALERT AND DENIES PAIN. LG BANDAID DRESSING RFA CDI. 20 GAUGE PIV L HAND PATENT AND RUNNING NS AT 50 ML/HR. DIALYSIS CATHETER RUCHEST NOTED. SKIN PINK AND WARM, PATEL, BRISK CAP REFILL, PPULSES PALPABLE, VSS, RESTING COMFORTABLY.
--- NOTE | 2020-06-07 12:32 | NUR ---
PT AWAKE AND ALERT AND DENIES PAIN. LG BANDAID DRESSING RFA CDI. 20 GAUGE PIV L HAND DCD CATH TIP INTACT. DIALYSIS CATHETER RUCHEST NOTED. SKIN PINK AND WARM, PATEL, BRISK CAP REFILL, PPULSES PALPABLE, VSS, TOLERATING FLUIDS, ABLE TO DRESS SELF AND AMBULATE. DISCHARGE INSTRUCTIONS GIVEN AND PT VERBALIZED UNDERSTANDING. TRANSPORTED VIA WHEELCHAIR TO SPOUSE IN PRIVATE VEHICLE TO HOME.
== END 2020-06-07 12:32 | disposition home or self-care (01) ==
LOC: PAS 06:34
PROVIDERS: ATTEND Surgery
DX: T82.590A Other mechanical complication of surgically created arteriovenous fistula, initial encounter (principal); I12.0 Hypertensive chronic kidney disease with stage 5 chronic kidney disease or end stage renal disease; N18.6 End stage renal disease; E66.01 Morbid (severe) obesity due to excess calories; Z68.41 Body mass index [BMI] 40.0-44.9, adult; Z79.82 Long term (current) use of aspirin; Z79.899 Other long term (current) drug therapy; Z95.1 Presence of aortocoronary bypass graft; Z87.442 Personal history of urinary calculi; Z98.890 Other specified postprocedural states; Z99.2 Dependence on renal dialysis; G89.18 Other acute postprocedural pain; Z87.891 Personal history of nicotine dependence; Z20.828 Contact with and (suspected) exposure to other viral communicable diseases; Y83.2 Surgical operation with anastomosis, bypass or graft as the cause of abnormal reaction of the patient, or of later complication, without mention of misadventure at the time of the procedure; Y92.89 Other specified places as the place of occurrence of the external cause
CPT/HCPCS: 36415; 37607; 64417; 71046; 76882; 76942; 80053; 81001; 82948; 85025; 85610; 85730; 87635; 93005; J0690; J1100; J1644; J2001; J2405; J2704; J3010; J3490; J7040; A4215; A4618; A7000; J2795; J7120

== ENCOUNTER 2021-07-25 06:27 | Day surgery (SDC) | payer MEDICARE, OTHER ==
[~2021-07-25] VITALS: Ht 182.9 cm; Wt 135.1 kg
[~2021-07-25 06:27] MED LIST changes: +ACET600C5 PO; -ACYC200C PO; -DOCUMENT DATE & TIME OF BETA-BLOCKER PO ONE; +FOLI0.4T6 PO; +FURO40TA4 PO; -FURO80TA3 PO; +LOP25T PO; -METO25TA6 PO; +NITR0.4T51 SL; -ceFAZolin inj. 3,000 MG in normal saline 100ml IV soln 100 ML IV ONE; -famotidine 20mg tablet PO ONE; -ringers solution, lacted 1,000 ML IV SCH
[2021-07-25] MEDS ORDERED: ACYC200C30 PO (07:02)
[2021-07-25] MEDS ORDERED: FURO80TA3 PO (07:02)
[2021-07-25] MEDS ORDERED: SEVE800T8 PO (07:03)
[2021-07-25] MEDS ORDERED: normal saline 1000ml 1,000 ML IV SCH (07:05)
[2021-07-25 07:24] VITALS: BP 145/70
[2021-07-25 07:33] LABS: BASOPHILS # (AUTO) 0.1 X10'3 (0-0.2); BASOPHILS % (AUTO) 1.2 % (0-1); EOSINOPHILS # (AUTO) 0.2 X10'3 (0-0.9); EOSINOPHILS % (AUTO) 3.5 % (0-6); HEMATOCRIT 33.5 % (42.0-52.0); HEMOGLOBIN 11.2 g/dl (14.0-17.9); LYMPHOCYTES # (AUTO) 0.8 X10'3 (1.1-4.8); LYMPHOCYTES % (AUTO) 12.4 % (21-51); MEAN CORPUSCULAR HEMOGLOBIN 32.7 PG (27.0-31.0); MEAN CORPUSCULAR HGB CONC 33.4 g/dL (33.0-36.5); MEAN CORPUSCULAR VOLUME 97.9 FL (78-98); MEAN PLATELET VOLUME 7.2 FL (7.4-10.4); NEUTROPHILS # (AUTO) 4.6 X10'3 (1.8-7.7); NEUTROPHILS % (AUTO) 67.9 % (42-75); PLATELET COUNT 238 X10'3 (140-440); RED BLOOD COUNT 3.42 X10'6 (4.70-6.10); RED CELL DISTRIBUTION WIDTH 14.4 % (11.5-14.5); WHITE BLOOD COUNT 6.8 X10'3 (4.5-11.0)
[2021-07-25 07:54] LABS: ALBUMIN 3.3 G/DL (3.4-5.0); ANION GAP 12 (8-16); BLOOD UREA NITROGEN 73 MG/DL (7-18); BUN/CREATININE RATIO 6.4 (5.4-32.0); CALCIUM 10.4 MG/DL (8.5-10.1); CHLORIDE 103 MMOL/L (99-107); CREATININE 11.47 MG/DL (0.60-1.10); POTASSIUM 4.9 MMOL/L (3.5-5.1); SODIUM 141 MMOL/L (135-145); TOTAL CARBON DIOXIDE 25.9 MMOL/L (24-32); eGFR 4 ML/MIN
[2021-07-25 07:57] LABS: GLUCOSE 106 MG/DL (70-104)
[2021-07-25] MEDS ORDERED: fentaNYL/PF 50MCG/1 ML 2ML syringe ONE (09:24)
[2021-07-25] MEDS ORDERED: midazolam 1 mg/ML 2ml injection ONE (09:24)
[2021-07-25] MEDS ORDERED: LIDOcaine 1%/PF 5ML 10 MG/ML VIAL ONE (09:24)
[2021-07-25] MEDS ORDERED: iohexol 300mg/ml 100ml inj. ONE (09:25)
[2021-07-25] MEDS ORDERED: heparin 1,000 UNITS/NS 500ml 500 ML ONE (09:25)
[2021-07-25 10:03] LABS: PLATELET ESTIMATE NORMAL; TOTAL CELLS COUNTED 100
[2021-07-25 11:05] VITALS: BP 161/95
[2021-07-25 11:19] VITALS: BP 148/75
[2021-07-25 11:34] VITALS: BP 140/73
== END 2021-07-25 12:00 | disposition home or self-care (01) ==
LOC: SSTAY O 06:27
PROVIDERS: ATTEND Radiology Diagnostic Radiology
DX: T82.858A Stenosis of other vascular prosthetic devices, implants and grafts, initial encounter (principal); I12.0 Hypertensive chronic kidney disease with stage 5 chronic kidney disease or end stage renal disease; N18.6 End stage renal disease; Z79.01 Long term (current) use of anticoagulants; Z87.891 Personal history of nicotine dependence; Z79.82 Long term (current) use of aspirin; Z79.899 Other long term (current) drug therapy; Y83.2 Surgical operation with anastomosis, bypass or graft as the cause of abnormal reaction of the patient, or of later complication, without mention of misadventure at the time of the procedure; Y92.89 Other specified places as the place of occurrence of the external cause
CPT/HCPCS: 36415; 36901; 80048; 85025; 85610; 99152; 99153; C1769; C1894; J1644; J2250; J3010; Q9967; 85007

== ENCOUNTER 2021-07-26 11:07 | Day surgery (SDC) | payer MEDICARE, OTHER ==
[~2021-07-26] VITALS: Ht 182.9 cm; Wt 133.0 kg
[~2021-07-26 11:07] MED LIST changes: -ACET600C5 PO; +ACYC200C30 PO; -DEXA4TAB PO; -FOLI0.4T6 PO; -FURO40TA4 PO; +FURO80TA3 PO; -GABA100C PO; -NITR0.4T51 SL; +SEVE800T8 PO
[2021-07-26] MEDS ORDERED: famotidine 20mg tablet PO ONE ×2 (12:00→12:01)
[2021-07-26] MEDS ORDERED: ringers solution, lacted 1,000 ML IV SCH ×2 (12:01→13:30)
[2021-07-26] MEDS ORDERED: ceFAZolin 1GM/D5W- ADD-VANTAGE 50 ML IV ONE (12:05)
[2021-07-26] MEDS ORDERED: cefazolin/dext.iso 2gm/50ml 50 ML IV ONE (12:05)
[2021-07-26 13:09] VITALS: BP 134/71
[2021-07-26] MEDS ORDERED: BUPIVAcaine/PF 2.5 mg/ml (0.25%) 30ml vial ONE (13:15)
[2021-07-26] MEDS ORDERED: LIDOCAINE 1%/EPI 1:100,000 inj. 10 ML multi-dose vial ONE (13:16)
[2021-07-26] MEDS ORDERED: hydrALAZINE 20mg/ml inj. IV PRN (13:30)
[2021-07-26] MEDS ORDERED: ondansetron/PF 4mg/2ml inj IV PRN (13:30)
[2021-07-26] MEDS ORDERED: fentaNYL/PF 50MCG/1 ML 2ML syringe IV PRN ×2 (13:30)
[2021-07-26] MEDS ORDERED: labetalol 20mg/4ml (5mg/ml) syringe IV PRN (13:30)
[2021-07-26] MEDS ORDERED: morphine 2 MG/ML inj. syringe IV PRN (13:30)
[2021-07-26] MEDS ORDERED: morphine 4 MG/ML inj SYRINge IV PRN (13:30)
[2021-07-26] MEDS ORDERED: fentaNYL/PF 50MCG/1 ML 2ML syringe ONE (13:41)
[2021-07-26] MEDS ORDERED: ROPIVAcaine 0.5% (5mg/ml) 30ml vial ONE ×2 (13:42)
[2021-07-26] MEDS ORDERED: MIDAZolam 1mg/ml 10ml vial ONE (13:42)
[2021-07-26 16:05] VITALS: BP 120/61
--- NOTE | 2021-07-26 16:05 | NUR ---
ADMITTED TO PACU FROM OR ACCOMPANIED BY ANESTHESIA. INTIAL PHYSICAL ASSESSMENT DONE AND RECORDED. REPORT RECEIVED FROM ANESTHESIA.
[2021-07-26 16:15] VITALS: BP 132/48
[2021-07-26 16:25] VITALS: BP 104/50
--- NOTE | 2021-07-26 17:00 | NUR ---
DISCHARGE CRITERIA MET, DISCHARGE INSTRUCTIONS GIVEN, DEMONSTRATES VERBAL UNDERSTANDING. DISCHARGED HOME IN GOOD CONDITION.
== END 2021-07-26 17:00 | disposition home or self-care (01) ==
LOC: OR 11:07
PROVIDERS: ATTEND Surgery
DX: T82.858A Stenosis of other vascular prosthetic devices, implants and grafts, initial encounter (principal); I12.0 Hypertensive chronic kidney disease with stage 5 chronic kidney disease or end stage renal disease; N18.6 End stage renal disease; D47.2 Monoclonal gammopathy; G89.18 Other acute postprocedural pain; G47.30 Sleep apnea, unspecified; Z20.822 Contact with and (suspected) exposure to COVID-19; Z79.899 Other long term (current) drug therapy; Z79.82 Long term (current) use of aspirin; Z87.442 Personal history of urinary calculi; Z98.890 Other specified postprocedural states; Y83.2 Surgical operation with anastomosis, bypass or graft as the cause of abnormal reaction of the patient, or of later complication, without mention of misadventure at the time of the procedure; Y92.89 Other specified places as the place of occurrence of the external cause
CPT/HCPCS: 36832; 64417; 76942; 82948; 87635; C9803; J0690; J1644; J2250; J3010; J3490; J7040; J7120; Z7506; Z7508; Z7512; A4215; A4618; A6446; A7000; J2795

== ENCOUNTER 2021-08-07 06:28 | Day surgery (SDC) | payer MEDICARE, OTHER ==
[~2021-08-07] VITALS: Ht 182.9 cm; Wt 137.5 kg
[2021-08-07] MEDS ORDERED: normal saline 1000ml 1,000 ML IV PRN (06:50)
[2021-08-07 07:53] VITALS: BP 168/75
[2021-08-07] MEDS ORDERED: heparin 1,000unit/ml 10ml vial 10 ML ONE (08:40)
[2021-08-07] MEDS ORDERED: fentaNYL/PF 50MCG/1 ML 2ML syringe ONE (08:40)
[2021-08-07] MEDS ORDERED: LIDOcaine 1%/PF 5ML 10 MG/ML VIAL ONE (08:40)
[2021-08-07] MEDS ORDERED: midazolam 1 mg/ML 2ml injection ONE (08:40)
--- NOTE | 2021-08-07 08:50 | NUR ---
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
[2021-08-07 10:14] VITALS: BP 195/74
[2021-08-07 10:28] VITALS: BP 135/79
[2021-08-07 10:43] VITALS: BP 155/67
[2021-08-07 11:13] VITALS: BP 145/62
== END 2021-08-07 11:25 | disposition home or self-care (01) ==
LOC: SSTAY O 06:28
PROVIDERS: ATTEND Radiology Diagnostic Radiology
DX: T82.858A Stenosis of other vascular prosthetic devices, implants and grafts, initial encounter (principal); I12.0 Hypertensive chronic kidney disease with stage 5 chronic kidney disease or end stage renal disease; N18.6 End stage renal disease; I25.10 Atherosclerotic heart disease of native coronary artery without angina pectoris; Z85.79 Personal history of other malignant neoplasms of lymphoid, hematopoietic and related tissues; Z95.1 Presence of aortocoronary bypass graft; Z98.890 Other specified postprocedural states; Z72.89 Other problems related to lifestyle; Z79.899 Other long term (current) drug therapy; Z79.82 Long term (current) use of aspirin; Z87.442 Personal history of urinary calculi; Y83.2 Surgical operation with anastomosis, bypass or graft as the cause of abnormal reaction of the patient, or of later complication, without mention of misadventure at the time of the procedure; Y92.89 Other specified places as the place of occurrence of the external cause
CPT/HCPCS: 36558; 76937; 77001; 99152; 99153; C1750; C1769; C1894; J1644; J2250; J3010

== ENCOUNTER 2022-10-22 05:37 | Inpatient (IN) | payer MEDICARE, OTHER ==
[~2022-10-22] VITALS: Ht 180.3 cm; Wt 128.6 kg
[2022-10-22] VITALS (13 sets, daily range): BP systolic 70–203; BP diastolic 35–82
[~2022-10-22 05:37] MED LIST changes: -ACYC200C30 PO; +CALC668T PO; +DEXA2TAB PO; +DEXA4TAB77 PO; +MULT-1085 PO; -SEVE800T8 PO
[2022-10-22] MEDS ORDERED: rocuronium 10mg/ml inj IV ONE (06:00)
[2022-10-22] MEDS ORDERED: etomidate 2mg/ml inj. ONE (06:00)
--- NOTE | 2022-10-22 06:09 | NUR ---
DR RANDOLPH MADE AWARE OF PT, NOW AT BEDSIDE
[2022-10-22 06:38] LABS: BASOPHILS # (AUTO) 0.1 X10'3 (0-0.2); BASOPHILS % (AUTO) 0.6 % (0-1); EOSINOPHILS # (AUTO) 0.1 X10'3 (0-0.9); EOSINOPHILS % (AUTO) 1.4 % (0-6); HEMATOCRIT 35.4 % (42.0-52.0); HEMOGLOBIN 11.4 g/dl (14.0-17.9); LYMPHOCYTES # (AUTO) 0.9 X10'3 (1.1-4.8); LYMPHOCYTES % (AUTO) 10.3 % (21-51); MEAN CORPUSCULAR HEMOGLOBIN 29.7 PG (27.0-31.0); MEAN CORPUSCULAR HGB CONC 32.2 g/dL (33.0-36.5); MEAN CORPUSCULAR VOLUME 92.2 FL (78-98); MEAN PLATELET VOLUME 7.9 FL (7.4-10.4); MONOCYTES # (AUTO) 1.2 X10'3 (0-0.9); MONOCYTES % (AUTO) 13.4 % (2-12); NEUTROPHILS # (AUTO) 6.7 X10'3 (1.8-7.7); NEUTROPHILS % (AUTO) 74.3 % (42-75); PLATELET COUNT 174 X10'3 (140-440); RED BLOOD COUNT 3.84 X10'6 (4.70-6.10)
[2022-10-22 06:42] LABS: APTT 28 SECONDS (22-32)
[2022-10-22 06:44] LABS: ALBUMIN 3.2 G/DL (3.4-5.0); ANION GAP 9 (8-16); BILIRUBIN,TOTAL 0.5 MG/DL (0.1-1.0); BLOOD UREA NITROGEN 83 MG/DL (7-18); BUN/CREATININE RATIO 6.1 (5.4-32.0); CALCIUM 9.2 MG/DL (8.5-10.1); CHLORIDE 96 MMOL/L (99-107); GLUCOSE 138 MG/DL (70-104); SODIUM 137 MMOL/L (135-145); TOTAL CARBON DIOXIDE 32.1 MMOL/L (24-32); TOTAL PROTEIN 7.3 G/DL (6.4-8.2); eGFR 4 ML/MIN
[2022-10-22 06:45] LABS: ALANINE AMINOTRANSFERASE 14 U/L (12-78); ALBUMIN/GLOBULIN RATIO 0.8 (1.1-1.5); ALKALINE PHOSPHATASE 56 IU/L (46-116); ASPARTATE AMINO TRANSFERASE 6 U/L (10-37); POTASSIUM 6.2 MMOL/L (3.5-5.1)
[2022-10-22] MEDS ORDERED: insulin regular, human U-100 3ml vial - multi-dose IV ONE (06:50)
[2022-10-22] MEDS ORDERED: dextrose 50%-water 50ml dispensing syringe IV ONE (06:50)
[2022-10-22] MEDS: sodium polystyrene sulfonate 15gm/60ml oral suspension PO ONE ×2 (07:46→07:58)
[2022-10-22] MEDS ORDERED: sodium polystyrene sulfonate 15gm/60ml oral suspension PO ONE (08:00)
[2022-10-22] MEDS ORDERED: heparin 1,000unit/ml 10ml vial 10 ML IV ONE (08:20)
[2022-10-22] MEDS ORDERED: normal saline 1000ml 250 ML IV PRN (08:20)
[2022-10-22] MEDS ORDERED: heparin 1,000 units/ml 10ml inj HE ONE ×2 (08:25)
[2022-10-22] MEDS ORDERED: furosemide 10 MG/1 ML 10ml inj IV ONE (10:25)
[2022-10-22] MEDS ORDERED: magnesium Cl slow-release 64mg tablet PO PRN ×2 (10:30→14:45)
[2022-10-22] MEDS ORDERED: HYDROcodone/acetaminophen 5mg/325mg tablet PO PRN (10:30)
[2022-10-22] MEDS ORDERED: HYDROmorphone/PF 0.2 MG/ML SYRINGE IV PRN (10:30)
[2022-10-22] MEDS ORDERED: potassium Cl 40MEQ/1/2NS 520ml 520 ML IV PRN ×2 (10:30→14:45)
[2022-10-22] MEDS ORDERED: potassium Cl 20 mEq SR tablet PO PRN ×4 (10:30→14:45)
[2022-10-22] MEDS ORDERED: PERFLUTREN PROTEIN-A MICROSPHR (Optison) 0.22 MG/ML 3ML VIAL IV ONE (10:30)
[2022-10-22] MEDS ORDERED: magnesium hydroxide 30ml (MOM) UD suspension PO PRN ×2 (10:30→14:45)
[2022-10-22] MEDS ORDERED: magnesium 4gm in 100ml NS 100 ML IV PRN ×2 (10:30→14:45)
[2022-10-22] MEDS ORDERED: acetaminophen 650mg rectal suppository RC PRN (10:30)
[2022-10-22] MEDS ORDERED: ondansetron/PF 4mg/2ml inj IV PRN ×2 (10:30→14:45)
[2022-10-22] MEDS ORDERED: mag hydrox/Alum hydrox/simeth 30ml oral suspension PO PRN ×2 (10:30→14:45)
[2022-10-22] MEDS ORDERED: acetaminophen 325mg tablet PO PRN ×2 (10:30→14:45)
[2022-10-22] MEDS ORDERED: HYDROcodone/acetaminophen 10/325mg tab PO PRN (10:30)
[2022-10-22] MEDS ORDERED: ondansetron 4mg rapidly disintigrating tab PO PRN (10:30)
[2022-10-22] MEDS ORDERED: HYDROmorphone inj. 0.5 MG/0.5 ML DISP.SYRIN IV PRN (10:30)
[2022-10-22 11:45] LABS: APTT 28 SECONDS (22-32); MAGNESIUM 3.3 MG/DL (1.5-2.4); POTASSIUM 5.7 MMOL/L (3.5-5.1)
[2022-10-22 11:59] LABS: PHOSPHORUS 7.3 MG/DL (2.3-4.5)
[2022-10-22 12:18] LABS: ABG BASE EXCESS -1.8 mmol/L (-2.0-2.0); ABG HCO3 29.7 mmol/L (22.0-26.0); ABG OXYGEN SATURATION 91.7 % (94-97); ABG PCO2 (T) 93.5 mmHg (35.0-48.0); ABG PO2 (T) 72.3 mmHg (75.0-100.0); ALLEN'S TEST POSITIVE; FCOHb 1.4 % (0.0-3.9); FLOW 5 L/min; FMetHb 0.3 % (0.0-1.5); FO2Hb 90.1 % (94-97); PATIENT TEMPERATURE 37.2; TOTAL HEMOGLOBIN 12.4 G/dl (14.0-17.9)
[2022-10-22] MEDS ORDERED: LIDOcaine 1% (10mg/ml) 2ml vial SQ ONE (12:25)
[2022-10-22] MEDS ORDERED: ondansetron/PF 4mg/2ml inj IV STA (12:37)
--- NOTE | 2022-10-22 12:38 | NUR ---
RECEIVED PATIENT IN BED 4.
--- NOTE | 2022-10-22 13:00 | NUR ---
RADIOLOGY AT BEDSIDE.
[2022-10-22] MEDS ORDERED: dexmedetomidin/NS 400mcg/100ml 100 ML IV SCH (13:05)
--- NOTE | 2022-10-22 13:18 | NUR ---
Dr. Gresham at bedside to start central line.
--- NOTE | 2022-10-22 13:30 | NUR ---
12 mg etomidate given at 1330
--- NOTE | 2022-10-22 13:34 | NUR ---
shanna 50mg ivp given.
--- NOTE | 2022-10-22 13:39 | NUR ---
STILL NO PRECEDEX, CALLED PHARMACY TO DELIVER.
--- NOTE | 2022-10-22 13:42 | NUR ---
fi02 increased to 100% per Dr. Gresham patient sating 91%.
[2022-10-22 13:47] LABS: ABG BASE EXCESS -4.9 mmol/L (-2.0-2.0); ABG HCO3 22.3 mmol/L (22.0-26.0); ABG OXYGEN SATURATION 98.8 % (94-97); ABG PCO2 (T) 49.3 mmHg (35.0-48.0); ABG PO2 (T) 143.8 mmHg (75.0-100.0); ALLEN'S TEST POSITIVE; FCOHb 1.1 % (0.0-3.9); FMetHb 0.3 % (0.0-1.5); FO2Hb 97.4 % (94-97); PATIENT TEMPERATURE 36.7; PEEP 5 cm H2O; RESPIRATORY RATE 16 b/min; TIDAL VOLUME 500 mL; TOTAL HEMOGLOBIN 12.3 G/dl (14.0-17.9)
--- NOTE | 2022-10-22 13:51 | NUR ---
fio2 down to 30% per Dr Damon.
--- NOTE | 2022-10-22 14:19 | NUR ---
Dr. Dean at bedside.
[2022-10-22] MEDS ORDERED: PRAV40TA3 PO (14:31)
[2022-10-22] MEDS ORDERED: ASPI-1264 PO (14:31)
[2022-10-22] MEDS ORDERED: DEC4T PO (14:31)
[2022-10-22] MEDS ORDERED: CALC668T PO (14:31)
[2022-10-22] MEDS ORDERED: MULT-444 PO (14:31)
[2022-10-22] MEDS ORDERED: FURO80TA3 PO (14:31)
[2022-10-22] MEDS ORDERED: ZOLP5TAB8 PO (14:31)
[2022-10-22] MEDS ORDERED: METO25TA6 PO (14:31)
--- NOTE | 2022-10-22 14:33 | NUR ---
patient aflutter,rate of 47 saturation 90 % on 30% fio2 Dr. Holloway at bedside, states keep saturation greater than 88% and above, HR ok 40bpm and greater.
[2022-10-22] MEDS ORDERED: LIDOcaine 2% 10ml TOPICAL JELLY (Urojet) TP ONE (14:45)
[2022-10-22] MEDS: propofol 1000mg/100ml bottle 100 ML IV SCH (14:47)
[2022-10-22] MEDS: FENTANYL-0.9 % NACL/PF 100 ML IV PRN (14:50)
[2022-10-22] MEDS: heparin, porcine 5000 units/ml vial SQ SCH (17:47)
[2022-10-22 17:50] LABS: CLARITY,URINE SLIGHTLY CLOUDY (Clear); COLOR,URINE YELLOW (Yellow); GLUCOSE, URINE NEGATIVE (Neg); KETONES,URINE TRACE mg/dl (Neg); LEUKOCYTE ESTERASE ,URINE MODERATE (Neg); NITRITES, URINE NEGATIVE (Neg); OCCULT BLOOD,URINE MODERATE (Neg); PROTEIN,URINE 100 mg/dl (Neg); UROBILINOGEN,URINE 0.2 E.U/dL (0.2-1.0)
[2022-10-22 18:15] LABS: UA COLLECTION TYPE FOLEY CATH
--- NOTE | 2022-10-22 18:19 | NUR ---
Report given to TAMERA Wyatt
[2022-10-22 18:46] LABS: BACTERIA,URINE 2+ /HPF (Neg); RBC,URINE 20-50 /HPF (0-2); SQUAMOUS EPITHELIAL CELL,UR FEW /LPF (FEW)
[2022-10-22 18:47] LABS: AMORPHOUS URATES 1+; MUCUS STRANDS FEW /LPF (Neg); TRANSITIONAL EPI CELLS,URINE FEW /HPF
[2022-10-22] MEDS: ipratropium/albuterol 3ml nebule NEB SCH ×2 (19:29→23:28)
[2022-10-22] MEDS: K and/or MAG REPLACEMENT MC SCH ×2 (20:00)
[2022-10-22] MEDS: docusate sod 100mg capsule PO SCH ×2 (20:00)
[2022-10-22] MEDS: acetaminophen 325mg tablet PO PRN (20:01)
--- NOTE | 2022-10-22 20:06 | NUR ---
Tylenol given for 38.3 temp. Ice bags applied as well
[2022-10-22] MEDS ORDERED: albumin (human) 25% 100 ML IV solution IV ONE (20:20)
[2022-10-22] MEDS: NORepinephrine 8mg/ 250ml NS 250 ML IV SCH (20:49)
[2022-10-22] MEDS ORDERED: temazepam 15mg capsule PO PRN (21:00)
[2022-10-22 23:06] LABS: ALBUMIN 3.4 G/DL (3.4-5.0); ANION GAP 9 (8-16); BLOOD UREA NITROGEN 35 MG/DL (7-18); BUN/CREATININE RATIO 4.9 (5.4-32.0); CALCIUM 8.3 MG/DL (8.5-10.1); CHLORIDE 97 MMOL/L (99-107); CREATININE 7.15 MG/DL (0.60-1.10); GLUCOSE 111 MG/DL (70-104); MAGNESIUM 2.1 MG/DL (1.5-2.4); PHOSPHORUS 2.6 MG/DL (2.3-4.5); POTASSIUM 3.7 MMOL/L (3.5-5.1); SODIUM 137 MMOL/L (135-145); TOTAL CARBON DIOXIDE 30.7 MMOL/L (24-32); eGFR 7 ML/MIN
[2022-10-23] VITALS (36 sets, daily range): BP systolic 92–170; BP diastolic 33–78
[2022-10-23] MEDS: propofol 1000mg/100ml bottle 100 ML IV SCH ×2 (00:19→09:59)
[2022-10-23] MEDS: heparin, porcine 5000 units/ml vial SQ SCH ×3 (00:25→16:27)
[2022-10-23 02:32] LABS: BASOPHILS # (AUTO) 0.1 X10'3 (0-0.2); BASOPHILS % (AUTO) 0.7 % (0-1); EOSINOPHILS # (AUTO) 0.2 X10'3 (0-0.9); EOSINOPHILS % (AUTO) 1.5 % (0-6); HEMATOCRIT 32.1 % (42.0-52.0); HEMOGLOBIN 10.2 g/dl (14.0-17.9); MEAN CORPUSCULAR HEMOGLOBIN 28.7 PG (27.0-31.0); MEAN CORPUSCULAR HGB CONC 31.9 g/dL (33.0-36.5); MEAN CORPUSCULAR VOLUME 89.9 FL (78-98); MEAN PLATELET VOLUME 7.7 FL (7.4-10.4); MONOCYTES # (AUTO) 1.8 X10'3 (0-0.9); MONOCYTES % (AUTO) 17.3 % (2-12); NEUTROPHILS # (AUTO) 7.3 X10'3 (1.8-7.7); NEUTROPHILS % (AUTO) 70.5 % (42-75); PLATELET COUNT 149 X10'3 (140-440); RED BLOOD COUNT 3.57 X10'6 (4.70-6.10); RED CELL DISTRIBUTION WIDTH 15.9 % (11.5-14.5); WHITE BLOOD COUNT 10.3 X10'3 (4.5-11.0)
[2022-10-23 02:47] LABS: ALANINE AMINOTRANSFERASE 15 U/L (12-78); ALBUMIN 3.3 G/DL (3.4-5.0); ALKALINE PHOSPHATASE 50 IU/L (46-116); ANION GAP 11 (8-16); ASPARTATE AMINO TRANSFERASE 17 U/L (10-37); BLOOD UREA NITROGEN 38 MG/DL (7-18); BUN/CREATININE RATIO 4.9 (5.4-32.0); CALCIUM 8.3 MG/DL (8.5-10.1); CHLORIDE 97 MMOL/L (99-107); CREATININE 7.72 MG/DL (0.60-1.10); MAGNESIUM 2.1 MG/DL (1.5-2.4); PHOSPHORUS 2.8 MG/DL (2.3-4.5); POTASSIUM 3.9 MMOL/L (3.5-5.1); SODIUM 136 MMOL/L (135-145); TOTAL CARBON DIOXIDE 27.8 MMOL/L (24-32); TOTAL PROTEIN 6.6 G/DL (6.4-8.2); TRIGLYCERIDES 164 MG/DL (20-135); eGFR 7 ML/MIN
[2022-10-23 02:49] LABS: GLUCOSE 127 MG/DL (70-104)
[2022-10-23 03:10] LABS: TOTAL CELLS COUNTED 100
[2022-10-23 03:11] LABS: ELLIPTOCYTES FEW; PLATELET ESTIMATE NORMAL; TOXIC GRANULATION 1+
[2022-10-23] MEDS: ipratropium/albuterol 3ml nebule NEB SCH ×6 (03:20→23:26)
[2022-10-23] MEDS: FENTANYL-0.9 % NACL/PF 100 ML IV PRN (03:36)
[2022-10-23 03:41] LABS: ABG BASE EXCESS 1.2 mmol/L (-2.0-2.0); ABG HCO3 25.1 mmol/L (22.0-26.0); ABG OXYGEN SATURATION 93.1 % (94-97); ABG PCO2 (T) 38.8 mmHg (35.0-48.0); ABG PO2 (T) 65.6 mmHg (75.0-100.0); ALLEN'S TEST POSITIVE; FCOHb 0.6 % (0.0-3.9); FMetHb 0.3 % (0.0-1.5); FO2Hb 92.3 % (94-97); PATIENT TEMPERATURE 37.7; PEEP 5 cm H2O; RESPIRATORY RATE 16 b/min; TIDAL VOLUME 500 mL; TOTAL HEMOGLOBIN 11.7 G/dl (14.0-17.9)
[2022-10-23] MEDS: acetaminophen 325mg tablet PO PRN (05:22)
--- NOTE | 2022-10-23 06:30 | NUR ---
Patient in room CICU 2016. I have received report from Beverly PHILIP and had the opportunity to ask questions and assume patient care.
[2022-10-23] MEDS: docusate sod 100mg capsule PO SCH ×2 (07:54→07:55)
[2022-10-23] MEDS: K and/or MAG REPLACEMENT MC SCH ×3 (07:55→20:00)
[2022-10-23] MEDS: NORepinephrine 8mg/ 250ml NS 250 ML IV SCH ×2 (08:04→19:48)
--- NOTE | 2022-10-23 09:27 | NUR ---
Fam. to see pt. Dr Dean to see pt. Updated on pts condition. When stimulated pt has tremors. states he had these at home yesterday also. Very [place]. Not following any commands but likely due to [place]. Hearing aides charging and will start . Pt had left FA IV that did not flush. It was removed with cath tip in tact. When tape was removed, pts tremors started again.
--- NOTE | 2022-10-23 11:35 | NUR ---
TF consult: Pt admit for weakness and ALOC, subsequently intubated to protect upper airway. Propofol visualized at bedside to be running at 10.17 mL/hr providing 268 kcal/day, TF recs have been adjusted accordingly. LBM 10/21, with routine bowel care available. Will continue to follow closely. Recommendations: 1) Given Propofol at 10.17 mL/hr (268 kcal/day), continuous Vital HP via OGT with 75 mL/hr goal rate to provide 1800 mL total volume/day, 157 g protein, and 1505 mL water 2) Monitor Propofol rate and need to adjust recs; IF Propofol discontinued, continuous Vital HP with 85 mL/hr goal rate 3) Additional water flush per physician in view of ESRD on HD 4) Prealbumin q Friday/ 5) Daily scaled weights 6) Routine bowel care Addendum: 10/23/22 at [address] Amended: Links added.
[2022-10-23] MEDS ORDERED: vancomycin/NS 1 GM ADD-VANTAGE 250 ML IV ONE (12:00)
[2022-10-23] MEDS ORDERED: vancomycin/NS 1 GM ADD-VANTAGE 250 ML IV PRN (12:05)
[2022-10-23] MEDS ORDERED: calcium acetate 667mg (phosLO) tablet PO SCH (12:15)
[2022-10-23] MEDS ORDERED: calcium acetate 667mg (PhosLO) capsule PO SCH (12:23)
[2022-10-23] MEDS: normal saline 500ml IV soln 500 ML IV SCH (12:51)
[2022-10-23] MEDS: dexmedetomidin/NS 400mcg/100ml 100 ML IV SCH ×2 (12:52→21:05)
--- NOTE | 2022-10-23 12:58 | NUR ---
Sedation off Per MD sedation off to see pts response. RR up to 35/min. Able to follow commands but very anxious. MD notified & orders received. Family at bedside for rounds as well as changes in sedation meds. Process explained by RT, RN & MD.
[2022-10-23 13:22] LABS: HBSAG SCREEN Negative (Negative)
[2022-10-23] MEDS: piperacillin/tazobactam inj. 3.375 GM in NS 50ml IV SCH ×2 (16:22→20:33)
[2022-10-23] MEDS ORDERED: acetaminophen 325mg tablet OGT PRN ×2 (18:04)
[2022-10-23] MEDS ORDERED: mag hydrox/Alum hydrox/simeth 30ml oral suspension OGT PRN (18:07)
[2022-10-23] MEDS ORDERED: magnesium hydroxide 30ml (MOM) UD suspension OGT PRN (18:08)
[2022-10-23] MEDS ORDERED: ondansetron 4mg rapidly disintigrating tab OGT PRN (18:09)
[2022-10-23] MEDS ORDERED: temazepam 15mg capsule OGT PRN (18:13)
--- NOTE | 2022-10-23 18:15 | NUR ---
Problems reprioritized. Patient report given, questions answered & plan of care reviewed with Beverly PHILIP.
[2022-10-23] MEDS ORDERED: acetaminophen 325mg/10.15ml oral unit dose solution OGT PRN (18:24)
[2022-10-23] MEDS ORDERED: POTASSIUM BICARB 20meq eff tab 20 MEQ TABLET.EFF OGT PRN ×2 (18:28→18:29)
[2022-10-23] MEDS ORDERED: POTASSIUM BICARB 20meq eff tab 20 MEQ TABLET.EFF PO PRN ×2 (18:28)
[2022-10-23] MEDS: metoprolol tartrate 25mg tablet OGT SCH (20:00)
[2022-10-23] MEDS: docusate sodium 100mg/10ml UD cup OGT SCH (20:32)
[2022-10-23] MEDS: mineral oil/petrolatum ophthal oint EACHEYE SCH (20:33)
[2022-10-23] MEDS: calcium acetate 667mg (PhosLO) capsule OGT SCH (20:33)
[2022-10-24] VITALS (32 sets, daily range): BP systolic 96–173; BP diastolic 36–103
--- NOTE | 2022-10-24 | NUR ---
Patient having high residuals on tube feeding, 300ml's out. Turned off for gut rest and to see if absorption occurs at 0400 check.
[2022-10-24] MEDS: NORepinephrine 8mg/ 250ml NS 250 ML IV SCH (00:25)
[2022-10-24] MEDS: heparin, porcine 5000 units/ml vial SQ SCH ×4 (00:53→23:31)
[2022-10-24] MEDS: mineral oil/petrolatum ophthal oint EACHEYE SCH ×5 (02:31→23:31)
[2022-10-24 03:24] LABS: BASOPHILS % (AUTO) 0.4 % (0-1); EOSINOPHILS # (AUTO) 0.1 X10'3 (0-0.9); EOSINOPHILS % (AUTO) 1.4 % (0-6); HEMATOCRIT 32.6 % (42.0-52.0); HEMOGLOBIN 10.7 g/dl (14.0-17.9); LYMPHOCYTES # (AUTO) 0.7 X10'3 (1.1-4.8); MEAN CORPUSCULAR HEMOGLOBIN 29.2 PG (27.0-31.0); MEAN CORPUSCULAR HGB CONC 32.8 g/dL (33.0-36.5); MEAN PLATELET VOLUME 8.1 FL (7.4-10.4); MONOCYTES # (AUTO) 1.6 X10'3 (0-0.9); MONOCYTES % (AUTO) 15.8 % (2-12); NEUTROPHILS # (AUTO) 7.7 X10'3 (1.8-7.7); NEUTROPHILS % (AUTO) 75.4 % (42-75); PLATELET COUNT 159 X10'3 (140-440); RED BLOOD COUNT 3.67 X10'6 (4.70-6.10); RED CELL DISTRIBUTION WIDTH 15.9 % (11.5-14.5); WHITE BLOOD COUNT 10.2 X10'3 (4.5-11.0)
[2022-10-24 03:40] LABS: ALANINE AMINOTRANSFERASE 15 U/L (12-78); ALBUMIN 2.8 G/DL (3.4-5.0); ALBUMIN/GLOBULIN RATIO 0.8 (1.1-1.5); ALKALINE PHOSPHATASE 46 IU/L (46-116); ANION GAP 13 (8-16); ASPARTATE AMINO TRANSFERASE 12 U/L (10-37); BILIRUBIN,TOTAL 1.3 MG/DL (0.1-1.0); BLOOD UREA NITROGEN 50 MG/DL (7-18); BUN/CREATININE RATIO 5.4 (5.4-32.0); CALCIUM 8.2 MG/DL (8.5-10.1); CHLORIDE 94 MMOL/L (99-107); CREATININE 9.33 MG/DL (0.60-1.10); MAGNESIUM 2.2 MG/DL (1.5-2.4); PHOSPHORUS 4.2 MG/DL (2.3-4.5); SODIUM 134 MMOL/L (135-145); TOTAL CARBON DIOXIDE 27.2 MMOL/L (24-32); TOTAL PROTEIN 6.3 G/DL (6.4-8.2); eGFR 5 ML/MIN
[2022-10-24] MEDS: VANCOMYCIN LEVEL IV SCH (03:44)
[2022-10-24 03:45] LABS: GLUCOSE 137 MG/DL (70-104); VANCOMYCIN,RANDOM 13.6 UG/ML
[2022-10-24] MEDS: ipratropium/albuterol 3ml nebule NEB SCH ×6 (03:45→22:43)
--- NOTE | 2022-10-24 04:00 | NUR ---
Residual tube feeding checked and still at 300ml's out. Will notify day shift and have them create plan with team. Tube feeding off until then to avoid unnecessary harm to patient.
[2022-10-24 04:07] LABS: ABG BASE EXCESS 0.8 mmol/L (-2.0-2.0); ABG HCO3 23.8 mmol/L (22.0-26.0); ABG OXYGEN SATURATION 94.5 % (94-97); ABG PCO2 (T) 32.8 mmHg (35.0-48.0); ABG PO2 (T) 67.6 mmHg (75.0-100.0); ALLEN'S TEST Modified; FCOHb 0.5 % (0.0-3.9); PATIENT TEMPERATURE 37.1; PEEP 5 cm H2O; RESPIRATORY RATE 16 b/min; TIDAL VOLUME 500 mL; TOTAL HEMOGLOBIN 11.9 G/dl (14.0-17.9)
[2022-10-24] MEDS: piperacillin/tazobactam inj. 3.375 GM in NS 50ml IV SCH ×3 (04:20→23:30)
[2022-10-24 04:28] LABS: TOTAL CELLS COUNTED 100
[2022-10-24 04:29] LABS: ELLIPTOCYTES FEW; PLATELET ESTIMATE NORMAL
[2022-10-24] MEDS ORDERED: EPOETIN ALFA-EPBX 20,000 UNIT/ML 1 ML MDV IV ONE (05:55)
[2022-10-24] MEDS ORDERED: heparin 1,000 units/ml 10ml inj IV ONE (05:55)
[2022-10-24] MEDS ORDERED: normal saline 1000ml 250 ML IV PRN (05:55)
--- NOTE | 2022-10-24 06:30 | NUR ---
Patient in room CICU 2016. I have received report from Bevrely PHILIP and had the opportunity to ask questions and assume patient care.
[2022-10-24] MEDS: docusate sodium 100mg/10ml UD cup OGT SCH ×2 (07:11→20:00)
[2022-10-24] MEDS: aspirin 325mg tablet OGT SCH (07:11)
[2022-10-24] MEDS: calcium acetate 667mg (PhosLO) capsule OGT SCH ×2 (07:12→20:00)
[2022-10-24] MEDS: K and/or MAG REPLACEMENT MC SCH ×2 (07:14→20:00)
[2022-10-24] MEDS: metoprolol tartrate 25mg tablet OGT SCH ×2 (07:14→20:00)
[2022-10-24] MEDS: pravastatin 40mg tablet OGT SCH (07:19)
[2022-10-24] MEDS ORDERED: vancomycin/NS 1 GM ADD-VANTAGE 250 ML IV ONE (07:45)
[2022-10-24] MEDS ORDERED: MULTIVIT-MIN/FERROUS GLUCONATE 9 MG/15 ML LIQUID OGT SCH (08:00)
[2022-10-24] MEDS: dexmedetomidin/NS 400mcg/100ml 100 ML IV SCH ×2 (08:11→14:47)
[2022-10-24] MEDS: acetaminophen 325mg/10.15ml oral unit dose solution OGT PRN ×2 (08:39→14:58)
--- NOTE | 2022-10-24 10:22 | NUR ---
Rounds Note Pts family at bedside. Dr. Dean and Dr. Damon at bedside also. Pts son stating pt doesnt want HD. Dr. Damon discussed pts status with pt and he agreed to do HD today in an effort to get him extubated and then have conversations with him about his wished. Pt and family having appropriate conversations even w/pt on vent.
[2022-10-24] MEDS ORDERED: LIDOcaine 1% (10mg/ml) 2ml vial SQ ONE (11:05)
--- NOTE | 2022-10-24 12:20 | NUR ---
HD Pt started on HD per his conversation with Dr. Damon. Forgets that conversation, gets frustrated. Conversation with MD reinforced and pt agrees, then repeats the process. Family at bedside.
--- NOTE | 2022-10-24 14:38 | NUR ---
Agitation: Pt with increasing agitation. Precedex increased accordingly. RT to assess as well and vent changed to CPAP/PS to see if pt would tolerate that better as RR was low 30s. Post vent change RR to low 20s. RT explained process to & daughter.
--- NOTE | 2022-10-24 18:09 | NUR ---
Comfort Care. Dr. Boyer talked to pts family and all agreed to place him on comfort measures. Discussed with Dr. Dean and called brother back to verify their decision as well as if family wanted to be her. Comfort order received and pt extubated a 5 with RT. Explained process to pt who agreed with extubation. Family came to see pt shortly after extubation and were at bedside. Pt responded to them briefly and good bys were said. Problems reprioritized. Patient report given, questions answered & plan of care reviewed with Trace PHILIP. Addendum: 10/24/22 at 1814 by Dominic Colindres RN Wrong pt.
--- NOTE | 2022-10-24 18:26 | NUR ---
Problems reprioritized. Patient report given, questions answered & plan of care reviewed with Cari PHILIP.
[2022-10-25] VITALS (17 sets, daily range): BP systolic 101–147; BP diastolic 44–69
[2022-10-25 02:54] LABS: BASOPHILS % (AUTO) 0.3 % (0-1); EOSINOPHILS # (AUTO) 0.1 X10'3 (0-0.9); EOSINOPHILS % (AUTO) 1.4 % (0-6); HEMATOCRIT 33.4 % (42.0-52.0); HEMOGLOBIN 10.7 g/dl (14.0-17.9); LYMPHOCYTES # (AUTO) 0.7 X10'3 (1.1-4.8); LYMPHOCYTES % (AUTO) 6.3 % (21-51); MEAN CORPUSCULAR HEMOGLOBIN 28.8 PG (27.0-31.0); MEAN CORPUSCULAR HGB CONC 32.2 g/dL (33.0-36.5); MEAN CORPUSCULAR VOLUME 89.7 FL (78-98); MEAN PLATELET VOLUME 7.9 FL (7.4-10.4); MONOCYTES # (AUTO) 1.6 X10'3 (0-0.9); MONOCYTES % (AUTO) 14.7 % (2-12); NEUTROPHILS # (AUTO) 8.1 X10'3 (1.8-7.7); NEUTROPHILS % (AUTO) 77.3 % (42-75); PLATELET COUNT 165 X10'3 (140-440); RED BLOOD COUNT 3.72 X10'6 (4.70-6.10); WHITE BLOOD COUNT 10.5 X10'3 (4.5-11.0)
[2022-10-25] MEDS: VANCOMYCIN LEVEL IV SCH (03:00)
[2022-10-25 03:06] LABS: ALANINE AMINOTRANSFERASE 14 U/L (12-78); ALBUMIN 2.5 G/DL (3.4-5.0); ALBUMIN/GLOBULIN RATIO 0.6 (1.1-1.5); ALKALINE PHOSPHATASE 49 IU/L (46-116); ANION GAP 8 (8-16); ASPARTATE AMINO TRANSFERASE 21 U/L (10-37); BILIRUBIN,TOTAL 1.4 MG/DL (0.1-1.0); BLOOD UREA NITROGEN 30 MG/DL (7-18); BUN/CREATININE RATIO 4.6 (5.4-32.0); CALCIUM 8.3 MG/DL (8.5-10.1); CHLORIDE 97 MMOL/L (99-107); CREATININE 6.59 MG/DL (0.60-1.10); MAGNESIUM 2.1 MG/DL (1.5-2.4); PHOSPHORUS 4.1 MG/DL (2.3-4.5); POTASSIUM 3.9 MMOL/L (3.5-5.1); SODIUM 137 MMOL/L (135-145); TOTAL CARBON DIOXIDE 32.5 MMOL/L (24-32); TOTAL PROTEIN 6.4 G/DL (6.4-8.2); eGFR 8 ML/MIN
[2022-10-25 03:11] LABS: GLUCOSE 101 MG/DL (70-104); VANCOMYCIN,RANDOM 17.1 UG/ML
[2022-10-25] MEDS: ipratropium/albuterol 3ml nebule NEB SCH ×6 (03:54→23:36)
--- NOTE | 2022-10-25 06:20 | NUR ---
Patient in room CICU 2016. I have received report from Cari PHILIP and had the opportunity to ask questions and assume patient care.
[2022-10-25] MEDS: aspirin 325mg tablet OGT SCH (07:48)
[2022-10-25] MEDS: metoprolol tartrate 25mg tablet OGT SCH ×2 (07:48→20:09)
[2022-10-25] MEDS: calcium acetate 667mg (PhosLO) capsule OGT SCH ×2 (07:48→20:08)
[2022-10-25] MEDS: heparin, porcine 5000 units/ml vial SQ SCH ×2 (07:49→17:33)
[2022-10-25] MEDS: pravastatin 40mg tablet OGT SCH (07:50)
[2022-10-25] MEDS: K and/or MAG REPLACEMENT MC SCH ×2 (07:52→19:27)
[2022-10-25] MEDS: mineral oil/petrolatum ophthal oint EACHEYE SCH ×3 (07:54→20:00)
[2022-10-25] MEDS: docusate sod 100mg capsule PO SCH ×2 (10:27→20:09)
[2022-10-25] MEDS: multivitamins, therapeutics tablet PO SCH (10:27)
--- NOTE | 2022-10-25 10:36 | NUR ---
Rounds Pt family at rounds. Pt wishing to talk to Dr. Dean after rounds this am. Plan to transfer to PCU. Dr. Damon to see pt. Talking over options and plans for future and possible not continuing HD.
--- NOTE | 2022-10-25 10:52 | NUR ---
MD Discussion Dr. Damon and Jermaine both talked with pt and he'd asked to go home on hospice. Family brought to room after MD conversation. CN & CM notified of pts wishes to go home.
--- NOTE | 2022-10-25 11:35 | NUR ---
Family Daughter & son joined for conversation about his decision.
[2022-10-25] MEDS: normal saline 500ml IV soln 500 ML IV SCH (12:30)
--- NOTE | 2022-10-25 13:26 | NUR ---
Malnutrition consult: Pt unsure of wt loss though with decreased appetite per malnutrition risk screen with RN. Per EMR pt extubated 10/24, OGT removed and TF discontinued. Pt s/p BSS today with ST recs MM5 diet with thin liquids, pending documentation of first meal intake since diet advancement from NPO. Renal diet added to diet order per RD request in view of ESRD. Pt with documented wt h/o 113.64 kg 06/24/22, first scaled wt this admit was 113.6 kg, wt appears stable though likely to fluctuate d/t changes in fluid status r/t ESRD. Pt with no documented significant decrease in muscle strength and with BLE 2+ mild edema. Pt seen at bedside, no visible fat or muscle wasting appreciated. Pt currently lacks a minimum of two criteria for malnutrition. Per physician note and verbal d/w bedside RN pt declining to continue with dialysis and wants to go on hospice. Code status has been changed to DNR at this time. LBM 10/21, receiving routine bowel care. Will continue to follow. Recommendations: 1) Continue MM5 renal diet with thin liquids per ST recs; liberalize to regular diet IF code status changes to comfort care 2) Routine bowel care 3) Weekly scaled weights Addendum: 10/25/22 at [address] Amended: Links added.
--- NOTE | 2022-10-25 14:14 | NUR ---
Fam Family at bedside talking with pt. All aware of pts plan for hospice. All appear to accept this decision and conversations positive.
--- NOTE | 2022-10-25 17:30 | NUR ---
Problems reprioritized. Patient report given, questions answered & plan of care reviewed with Demetrio PHILIP. Pt transferred to [facility] with cell phone. with pt. Taken by Carlos PHILIP and Ines bucio to [facility]. Addendum: 10/25/22 at 1842 by Dominic Colindres RN Pt has no other belongings. has his hearing aides in hand at time of transfer.
[2022-10-25] MEDS: piperacillin/tazobactam inj. 3.375 GM in NS 50ml IV SCH (20:00)
[2022-10-26] VITALS (8 sets, daily range): BP systolic 102–133; BP diastolic 46–62
[2022-10-26] MEDS: heparin, porcine 5000 units/ml vial SQ SCH ×4 (00:59→23:48)
[2022-10-26] MEDS: mineral oil/petrolatum ophthal oint EACHEYE SCH ×4 (02:00→19:54)
[2022-10-26] MEDS: ipratropium/albuterol 3ml nebule NEB SCH ×6 (03:13→23:29)
[2022-10-26 03:29] LABS: ALANINE AMINOTRANSFERASE 21 U/L (12-78); ALBUMIN 2.3 G/DL (3.4-5.0); ALBUMIN/GLOBULIN RATIO 0.6 (1.1-1.5); ALKALINE PHOSPHATASE 48 IU/L (46-116); ANION GAP 10 (8-16); ASPARTATE AMINO TRANSFERASE 16 U/L (10-37); BILIRUBIN,TOTAL 0.9 MG/DL (0.1-1.0); BLOOD UREA NITROGEN 44 MG/DL (7-18); BUN/CREATININE RATIO 5.2 (5.4-32.0); CALCIUM 8.7 MG/DL (8.5-10.1); CHLORIDE 96 MMOL/L (99-107); CREATININE 8.49 MG/DL (0.60-1.10); GLUCOSE 105 MG/DL (70-104); MAGNESIUM 2.4 MG/DL (1.5-2.4); PHOSPHORUS 5.2 MG/DL (2.3-4.5); POTASSIUM 3.8 MMOL/L (3.5-5.1); SODIUM 137 MMOL/L (135-145); TOTAL CARBON DIOXIDE 30.7 MMOL/L (24-32); TOTAL PROTEIN 6.2 G/DL (6.4-8.2); VANCOMYCIN,RANDOM 13.3 UG/ML; eGFR 6 ML/MIN
[2022-10-26] MEDS: VANCOMYCIN LEVEL IV SCH (03:56)
[2022-10-26] MEDS ORDERED: normal saline 1000ml 250 ML IV PRN (06:45)
[2022-10-26] MEDS ORDERED: EPOETIN ALFA-EPBX 20,000 UNIT/ML 1 ML MDV IV ONE (06:45)
[2022-10-26] MEDS ORDERED: heparin 1,000 units/ml 10ml inj IV ONE (06:45)
[2022-10-26] MEDS ORDERED: LIDOcaine 1% (10mg/ml) 2ml vial SQ ONE (06:45)
--- NOTE | 2022-10-26 06:53 | NUR ---
Patient in room PCU 3013A. I have received report from Hermann PHILIP and had the opportunity to ask questions and assume patient care. Pt is laying figh fowlers in bed. Pt on 3L NC. No s/s of distress. No c/o pain at this time. BLL, call light wihtin reach, frequently used items in reach, frequent rounding, interlocking and signal mechanic socks on. Will continue to monitor.
[2022-10-26 07:03] LABS: BASOPHILS # (AUTO) 0.1 X10'3 (0-0.2); BASOPHILS % (AUTO) 0.5 % (0-1); EOSINOPHILS # (AUTO) 0.3 X10'3 (0-0.9); EOSINOPHILS % (AUTO) 2.8 % (0-6); HEMATOCRIT 30.4 % (42.0-52.0); LYMPHOCYTES # (AUTO) 0.8 X10'3 (1.1-4.8); LYMPHOCYTES % (AUTO) 7.8 % (21-51); MEAN CORPUSCULAR HEMOGLOBIN 29.6 PG (27.0-31.0); MEAN CORPUSCULAR HGB CONC 32.8 g/dL (33.0-36.5); MEAN CORPUSCULAR VOLUME 90.1 FL (78-98); MEAN PLATELET VOLUME 7.7 FL (7.4-10.4); MONOCYTES # (AUTO) 1.4 X10'3 (0-0.9); MONOCYTES % (AUTO) 13.5 % (2-12); NEUTROPHILS # (AUTO) 7.9 X10'3 (1.8-7.7); NEUTROPHILS % (AUTO) 75.4 % (42-75); PLATELET COUNT 199 X10'3 (140-440); RED BLOOD COUNT 3.37 X10'6 (4.70-6.10); RED CELL DISTRIBUTION WIDTH 16.1 % (11.5-14.5); WHITE BLOOD COUNT 10.5 X10'3 (4.5-11.0)
[2022-10-26] MEDS: pravastatin 40mg tablet OGT SCH (08:00)
[2022-10-26] MEDS: K and/or MAG REPLACEMENT MC SCH ×2 (08:00→19:25)
[2022-10-26] MEDS: docusate sod 100mg capsule PO SCH ×2 (08:00→19:40)
[2022-10-26] MEDS: aspirin 325mg tablet OGT SCH (08:46)
[2022-10-26] MEDS: piperacillin/tazobactam inj. 3.375 GM in NS 50ml IV SCH ×2 (08:47→19:34)
[2022-10-26] MEDS: calcium acetate 667mg (PhosLO) capsule OGT SCH ×2 (08:47→19:52)
[2022-10-26] MEDS: multivitamins, therapeutics tablet PO SCH (08:47)
[2022-10-26] MEDS: metoprolol tartrate 25mg tablet OGT SCH ×2 (08:52→19:39)
[2022-10-26] MEDS ORDERED: vancomycin/NS 1 GM ADD-VANTAGE 250 ML IV ONE (14:00)
--- NOTE | 2022-10-26 17:01 | NUR ---
Unable to hang 1400 [address]anco GTT d/t HD. Will hang post dialysis. BLL, call light within reach, frequently used items in reach, frequent rounding. Will continue to monitor. Family at bedside.
--- NOTE | 2022-10-26 18:41 | NUR ---
Problems reprioritized. Patient report given, questions answered & plan of care reviewed with Zulema PHILIP.
[2022-10-27] MEDS: mineral oil/petrolatum ophthal oint EACHEYE SCH ×4 (02:00→19:13)
[2022-10-27] MEDS: ipratropium/albuterol 3ml nebule NEB SCH ×4 (03:00→15:00)
[2022-10-27] MEDS: VANCOMYCIN LEVEL IV SCH ×2 (03:00→19:16)
[2022-10-27 05:03] LABS: BASOPHILS % (AUTO) 0.5 % (0-1); EOSINOPHILS # (AUTO) 0.5 X10'3 (0-0.9); EOSINOPHILS % (AUTO) 5.6 % (0-6); HEMATOCRIT 30.3 % (42.0-52.0); HEMOGLOBIN 9.9 g/dl (14.0-17.9); LYMPHOCYTES # (AUTO) 0.7 X10'3 (1.1-4.8); LYMPHOCYTES % (AUTO) 7.6 % (21-51); MEAN CORPUSCULAR HEMOGLOBIN 29.3 PG (27.0-31.0); MEAN CORPUSCULAR HGB CONC 32.6 g/dL (33.0-36.5); MEAN CORPUSCULAR VOLUME 89.7 FL (78-98); MEAN PLATELET VOLUME 7.4 FL (7.4-10.4); MONOCYTES # (AUTO) 1.4 X10'3 (0-0.9); MONOCYTES % (AUTO) 15.9 % (2-12); NEUTROPHILS # (AUTO) 6.3 X10'3 (1.8-7.7); NEUTROPHILS % (AUTO) 70.4 % (42-75); PLATELET COUNT 202 X10'3 (140-440); RED BLOOD COUNT 3.37 X10'6 (4.70-6.10); RED CELL DISTRIBUTION WIDTH 16.6 % (11.5-14.5); WHITE BLOOD COUNT 8.9 X10'3 (4.5-11.0)
[2022-10-27 05:10] LABS: ALANINE AMINOTRANSFERASE 24 U/L (12-78); ALBUMIN 2.4 G/DL (3.4-5.0); ALBUMIN/GLOBULIN RATIO 0.6 (1.1-1.5); ALKALINE PHOSPHATASE 61 IU/L (46-116); ANION GAP 9 (8-16); ASPARTATE AMINO TRANSFERASE 22 U/L (10-37); BILIRUBIN,TOTAL 0.8 MG/DL (0.1-1.0); BLOOD UREA NITROGEN 25 MG/DL (7-18); BUN/CREATININE RATIO 4.3 (5.4-32.0); CALCIUM 9.1 MG/DL (8.5-10.1); CHLORIDE 98 MMOL/L (99-107); CREATININE 5.83 MG/DL (0.60-1.10); PHOSPHORUS 3.9 MG/DL (2.3-4.5); POTASSIUM 3.8 MMOL/L (3.5-5.1); SODIUM 138 MMOL/L (135-145); TOTAL CARBON DIOXIDE 31.1 MMOL/L (24-32); TOTAL PROTEIN 6.5 G/DL (6.4-8.2); eGFR 9 ML/MIN
[2022-10-27 05:17] LABS: GLUCOSE 101 MG/DL (70-104)
[2022-10-27 07:00] VITALS: BP 133/53
[2022-10-27] MEDS: docusate sod 100mg capsule PO SCH ×2 (08:00→19:49)
[2022-10-27] MEDS: K and/or MAG REPLACEMENT MC SCH ×2 (08:00→19:13)
[2022-10-27 08:18] LABS: PLATELET ESTIMATE NORMAL
[2022-10-27 08:19] LABS: ANISOCYTOSIS 1+; ELLIPTOCYTES FEW; POLYCHROMASIA FEW
[2022-10-27] MEDS: calcium acetate 667mg (PhosLO) capsule OGT SCH ×2 (08:26→19:41)
[2022-10-27] MEDS: metoprolol tartrate 25mg tablet OGT SCH ×2 (08:26→19:42)
[2022-10-27] MEDS: aspirin 325mg tablet OGT SCH (08:27)
[2022-10-27] MEDS: multivitamins, therapeutics tablet PO SCH (08:27)
[2022-10-27] MEDS: heparin, porcine 5000 units/ml vial SQ SCH ×2 (08:28→16:37)
[2022-10-27] MEDS: piperacillin/tazobactam inj. 3.375 GM in NS 50ml IV SCH ×2 (08:33→19:41)
[2022-10-27] MEDS: pravastatin 40mg tablet OGT SCH (08:33)
[2022-10-27 11:46] VITALS: BP 104/52
[2022-10-27] MEDS: normal saline 500ml IV soln 500 ML IV SCH (12:30)
[2022-10-27 15:49] VITALS: BP 125/55
--- NOTE | 2022-10-27 16:17 | NUR ---
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 MD HAS PLACED HEMO DIALYSIS ORDERS IN ALSO FOR [place]. CASE MANAGEMENT NOTIFIED AND ALSO NOTIFIED OF POTENTIAL CONFLICTING TIMES. I WILL ALSO REACH OUT TO LET PROCESS MECHANIC KNOW.
[2022-10-27 18:00] VITALS: BP 114/49
[2022-10-27 22:00] VITALS: BP 130/56
[2022-10-28] MEDS: heparin, porcine 5000 units/ml vial SQ SCH ×2 (01:18→08:24)
[2022-10-28 02:00] VITALS: BP 102/44
[2022-10-28] MEDS: mineral oil/petrolatum ophthal oint EACHEYE SCH ×2 (02:00→08:00)
[2022-10-28] MEDS ORDERED: heparin 1,000unit/ml 10ml vial 10 ML IV ONE (06:55)
[2022-10-28] MEDS ORDERED: normal saline 1000ml 250 ML IV PRN ×2 (06:55→08:00)
[2022-10-28] MEDS ORDERED: EPOETIN ALFA-EPBX 20,000 UNIT/ML 1 ML MDV IV ONE ×2 (06:55→08:00)
[2022-10-28] MEDS ORDERED: heparin 1,000 units/ml 10ml inj HE ONE ×2 (07:00)
[2022-10-28] MEDS: calcium acetate 667mg (PhosLO) capsule OGT SCH (08:00)
[2022-10-28] MEDS ORDERED: heparin 1,000 units/ml 10ml inj IV ONE (08:00)
[2022-10-28] MEDS: multivitamins, therapeutics tablet PO SCH (08:00)
[2022-10-28] MEDS ORDERED: LIDOcaine 1% (10mg/ml) 2ml vial SQ ONE (08:00)
[2022-10-28] MEDS: piperacillin/tazobactam inj. 3.375 GM in NS 50ml IV SCH (08:00)
[2022-10-28] MEDS: docusate sod 100mg capsule PO SCH (08:00)
[2022-10-28 08:23] VITALS: BP_SYST 136
[2022-10-28] MEDS: metoprolol tartrate 25mg tablet OGT SCH (08:23)
[2022-10-28] MEDS: pravastatin 40mg tablet OGT SCH (08:23)
[2022-10-28] MEDS: aspirin 325mg tablet OGT SCH (08:24)
--- NOTE | 2022-10-28 10:08 | NUR ---
Pt was DC'd as per 's orders after drop board man dialysis. Pt was sent home via [employer] and was accompanied by family. Discharge education was provided to pt and family in room. All questions were answered and pt stated he was ready to go home. Pt was unhooked from IV and stanton. Pt is being DC'd to home with hospice care that the family has set up.
== END 2022-10-28 09:45 | disposition hospice, home (50) | DRG 208 ==
LOC: ER 05:38 → ED HOLD 10:38 → CICU 2S 15:28 → PCU 3S 10-25 18:30
PROVIDERS: ADMIT Family Medicine; ATTEND Family Medicine
PROC: 5A1945Z Respiratory Ventilation, 24-96 Consecutive Hours (ICD-10-PCS; principal; 2022-10-22)
PROC: 0BH17EZ Insertion of Endotracheal Airway into Trachea, Via Natural or Artificial Opening (ICD-10-PCS; 2022-10-22)
PROC: 5A1D70Z Performance of Urinary Filtration, Intermittent, Less than 6 Hours Per Day (ICD-10-PCS; 2022-10-22)
PROC: 0DH67UZ Insertion of Feeding Device into Stomach, Via Natural or Artificial Opening (ICD-10-PCS; 2022-10-22)
PROC: 5A1D70Z Performance of Urinary Filtration, Intermittent, Less than 6 Hours Per Day (ICD-10-PCS; 2022-10-24)
PROC: 5A0945A Assistance with Respiratory Ventilation, 24-96 Consecutive Hours, High Flow/Velocity Cannula (ICD-10-PCS; 2022-10-24)
PROC: 5A1D70Z Performance of Urinary Filtration, Intermittent, Less than 6 Hours Per Day (ICD-10-PCS; 2022-10-26)
PROC: 5A1D70Z Performance of Urinary Filtration, Intermittent, Less than 6 Hours Per Day (ICD-10-PCS; 2022-10-28)
DX: J96.21 Acute and chronic respiratory failure with hypoxia (principal); G93.41 Metabolic encephalopathy; I50.33 Acute on chronic diastolic (congestive) heart failure; N18.6 End stage renal disease; I13.2 Hypertensive heart and chronic kidney disease with heart failure and with stage 5 chronic kidney disease, or end stage renal disease; J44.1 Chronic obstructive pulmonary disease with (acute) exacerbation; J96.22 Acute and chronic respiratory failure with hypercapnia; E66.9 Obesity, unspecified; Z66 Do not resuscitate; E78.5 Hyperlipidemia, unspecified; Z68.39 Body mass index [BMI] 39.0-39.9, adult; E87.5 Hyperkalemia; E87.6 Hypokalemia; F17.290 Nicotine dependence, other tobacco product, uncomplicated; I25.10 Atherosclerotic heart disease of native coronary artery without angina pectoris; I34.0 Nonrheumatic mitral (valve) insufficiency; K21.9 Gastro-esophageal reflux disease without esophagitis; N40.0 Benign prostatic hyperplasia without lower urinary tract symptoms; Z51.5 Encounter for palliative care; Z63.4 Disappearance and death of family member; Z63.72 Alcoholism and drug addiction in family; Z81.3 Family history of other psychoactive substance abuse and dependence; Z82.49 Family history of ischemic heart disease and other diseases of the circulatory system; Z85.820 Personal history of malignant melanoma of skin; Z86.16 Personal history of COVID-19; Z87.442 Personal history of urinary calculi; Z95.1 Presence of aortocoronary bypass graft; Z95.5 Presence of coronary angioplasty implant and graft; Z99.2 Dependence on renal dialysis; D64.9 Anemia, unspecified
CPT/HCPCS: 36415; 36600; 70450; 71045; 80048; 80053; 80202; 81001; 82803; 82948; 83605; 83735; 83880; 84100; 84132; 84134; 84478; 85007; 85008; 85018; 85025; 85610; 85730; 86885; 86900; 86901; 87040; 87070; 87081; 87088; 87340; 90935; 92508; 92616; 93005; 93306; 94002; 94003; 94640; 94664; 94668; 94760; 94799; 97110; 97161; 97530; 99291; A4615; A5200; A6213; A6402; A6449; A7015; C1751; E1594; G0378; J1644; J1815; J1940; J2405; J2543; J2704; J3010; J3370; J3490; J7030; J7040; P9047; Q4081